=== PATIENT | male | born 1975 | race Caucasian/White ===

== ENCOUNTER 2019-10-12 14:15 | Outpatient (RCR) | payer OTHER, SELFPAY | END 2019-11-07 00:01 | LOC: SOT 14:15 | PROVIDERS: Family Provider Family Medicine; Visit Provider Specialist | DX: M77.11 Lateral epicondylitis, right elbow (principal) | CPT/HCPCS: 97035 ×5; 97110 ×5; 97140 ×4; 97165 ==

== ENCOUNTER 2022-10-14 10:05 | Inpatient (IN) | payer OTHER, SELFPAY ==
[2022-10-14 10:17] VITALS: BP 135/80; PULSE 89; TEMP 36.4; O2SAT 99; BMI 26.4
--- NOTE | 2022-10-14 11:22 | ED.C_ITS ---
HPI - Psych General: Chief Complaint: Psychiatric Symptoms Stated Complaint: hallucinations Time Seen by Provider: 10/14/22 10:35 Source: patient and family ( and friend) Mode of arrival: ambulatory Limitations: other (pt with active delusions) History of Present Illness: See nursing assessment. states patient has had auditory and visual hallucinations for approximately 3 days. Patient has been somewhat anxious. Patient also with grandiose thoughts, hyperreligious, much of the time delusional. Patient reportedly spent approximately 3 weeks in behavioral health unit at [facility] in July and August for similar problems. Patient denies being suicidal or homicidal. Associated symptoms: Reports auditory hallucinations, visual hallucinations and delusions Review of Systems 2 Const: Denies: fever(s) or chills Eyes: Denies: change in vision ENMT: Denies: throat pain Card: Denies: chest pain or palpitations Resp: Denies: dyspnea or wheezing GI: Denies: abdominal pain, nausea or vomiting : Denies: flank pain Musc: Denies: neck pain or back pain Skin/Breast: Denies: rash or pruritus Neuro: Denies: headache(s) or numbness in extremities Psych: Reports: anxiety, mood swings, visual hallucinations, auditory hallucinations and other (Delusional) Clarke/Lymph: Denies: enlarged lymph nodes [facility] ED PFSH: Medical History Right hip pain Right shoulder pain Social History Smoking and tobacco status: current every day smoker Alcohol intake: current Supplemental [facility] Information: Patient with history of acute psychosis in the past. Physical Exam Const: COMMON NORMALS: no acute distress, patient oriented x3, alert and well nourished GENERAL APPEARANCE: cooperative and well kempt HENMT: COMMON NORMALS: normocephalic and atraumatic HEAD & SCALP: normocephalic and atraumatic Eye: COMMON NORMALS: EOMs intact bilaterally Neck/C-Spine: COMMON NORMALS: full ROM, no lymphadenopathy, supple and no JVD Lymph: LYMPHATIC: no lymphadenopathy noted Chest: COMMONS NORMALS: normal inspection of the chest and normal palpation of entire chest wall Resp: COMMON NORMALS: normal respiratory effort, No retractions, No use of accessory muscles and clear to auscultation bilaterally AUSCULTATION: clear to auscultation bilaterally Cardio: COMMON NORMALS: no JVD, regular rate, regular rhythm and Peripheral pulses 2+ throughout RATE: regular rate RHYTHM: regular rhythm PERIPHERAL PULSES: Peripheral pulses 2+ throughout GI: COMMON NORMALS: Normal to inspection, nondistended, normoactive bowel sounds present, Soft to palpation and non-tender PALPATION: Yes Soft to palpation : COMMON NORMALS: Yes no CVA tenderness BLADDER/KIDNEY EXAM: Yes no CVA tenderness Back/Pelvis: COMMON NORMALS: no CVA tenderness Extremity: COMMON NORMALS: normal to inspection and full ROM Neuro: COMMON NORMALS: patient oriented x3, CN's II-XII intact bilaterally, moves all extremities, no focal motor deficits and no sensory deficits noted SENSORIUM/ORIENTATION: Yes alert Psych: COMMON NORMALS: speech normal APPEARANCE: Yes well kempt ATTITUDE: Yes calm ACTIVITY/MOTOR BEHAVIOR: Yes appropriate eye contact SPEECH: Yes normal speech MOOD & AFFECT: No anxious THOUGHT PROCESS: disorganized, Flight of ideas present and Tangential thought process present THOUGHT CONTENT: Yes delusions Delusional thought content details: grandiose ATTENTION/CONCENTRATION: Yes attention grossly intact MEMORY/COGNITION: Yes memory grossly intact INSIGHT: Fair insight present (Psych) JUDGEMENT: Fair judgement present (Psych) OTHER: Patient with active delusions. No auditory or visual hallucinations now. Patient is acutely psychotic. Skin: COMMON NORMALS: no rashes or lesions noted GENERAL SKIN EXAM: no ra shes or lesions noted Course Vital Signs: Vital signs: Vital Signs Temperature 97.6 F 10/14/22 10:17 Pulse Rate 89 10/14/22 10:17 Blood Pressure 135/80 10/14/22 10:17 Pulse Oximetry 99 10/14/22 10:17 Oxygen Delivery Me thod 10/14/22 10:17 MDM - Psych Medical Decision Making Patient is acutely psychotic. He is having active delusions. states he is gradually worsened over the last few days. Patient with recent auditory and visual hallucinations. Will place patient on 96-hour involuntary hold due to his active psychosis. Discussed with Dr. Brandon psychiatrist. He agreed to admit the patient as an inpatient to the behavioral health unit. Lab Data 10/14/22 11:34 10/14/22 11:34 Laboratory Results WBC 8.3 10^3/uL (4.0-10.0) 10/14/22 11:34 RBC 4.45 10^6/uL (4.1-5.3) 10/14/22 11:34 Hgb 14.1 g/dL (11.7-16.6) 10/14/22 11:34 Hct 40.7 % (42.0-52.0) L 10/14/22 11:34 MCV 91.5 fl (80-94) 10/14/22 11:34 MCH 31.7 pg (28.0-34.0) 10/14/22 11:34 MCHC 34.6 g/dL (30.0-36.0) 10/14/22 11:34 RDW 13.2 % (12.1-15.1) 10/14/22 11:34 Plt Count 242 10^3/cmm (130-400) 10/14/22 11:34 MPV 9.4 fL (7.4-10.4) 10/14/22 11:34 Neut % (Auto) 60.6 % 10/14/22 11:34 Lymph % (Auto) 26.1 % 10/14/22 11:34 Graham % (Auto) 11.0 % 10/14/22 11:34 Eos % (Auto) 1.9 % 10/14/22 11:34 Baso % (Auto) 0.2 % 10/14/22 11:34 Neut # (Auto) 5.04 10^3/uL (1.8-7.7) 10/14/22 11:34 Lymph # (Auto) 2.2 10^3/uL (0.8-4.8) 10/14/22 11:34 Graham # (Auto) 0.9 10^3/uL (0.2-0.9) 10/14/22 11:34 Eos # (Auto) 0.2 10^3/uL (0.0-0.8) 10/14/22 11:34 Baso # (Auto) 0.0 10^3/uL (0.0-0.1) 10/14/22 11:34 Nucleated RBC % (auto) 0 % 10/14/22 11:34 Nucleated RBCs # 0.0 /100WBC 10/14/22 11:34 Sodium 131 mmol/L (136-145) L 10/14/22 11:34 Potassium 3.9 mmol/L (3.5-5.1) 10/14/22 11:34 Chloride 97 mmol/L (98-107) L 10/14/22 11:34 Carbon Dioxide 24 mmol/L (22-29) 10/14/22 11:34 Anion Gap 13.9 (5-19) 10/14/22 11:34 BUN 5 mg/dL (6-20) L 10/14/22 11:34 Creatinine 0.9 mg/dL (0.7-1.2) 10/14/22 11:34 GFR Calculation 91.3 mL/min (90-130) 10/14/22 11:34 Glucose 100 mg/dL (65-115) 10/14/22 11:34 Calculated Osmolality 269 mOsm/kg (285-295) L 10/14/22 11:34 Calcium 9.2 mg/dL (8.5-10.5) 10/14/22 11:34 Total Bilirubin 0.3 mg/dL (0.15-1.2) 10/14/22 11:34 AST 17 U/L (0-40) 10/14/22 11:34 ALT 15 U/L (0-41) 10/14/22 11:34 Alkaline Phosphatase 55 U/L (40-130) 10/14/22 11:34 Total Protein 6.7 g/dL (6.6-8.7) 10/14/22 11:34 Albumin 4.1 g/dL (3.5-5.2) 10/14/22 11:34 Globulin 2.6 g/dL (1.3-4.6) 10/14/22 11:34 TSH 0.99 uIU/mL (0.27-4.20) 10/14/22 11:34 Urine Color Yellow (Yellow) 10/14/22 10:58 Urine Appearance Clear (CLEAR) 10/14/22 10:58 Urine pH 7 (5-7) 10/14/22 10:58 Ur Specific Atkins 1.010 (1.005-1.030) 10/14/22 10:58 Urine Protein Neg (Negative) 10/14/22 10:58 Urine Glucose (UA) Norm (Normal) 10/14/22 10:58 Urine Ketones 1+ (Negative) H 10/14/22 10:58 Urine Blood Neg (Negative) 10/14/22 10:58 Urine Nitrate Negative (Negative) 10/14/22 10:58 Urine Bilirubin Neg (Negative) 10/14/22 10:58 Urine Urobilinogen 1 mg/dL (Negative) H 10/14/22 10:58 Ur Leukocyte Esterase Negative (Negative) 10/14/22 10:58 Urine RBC None /hpf (0-2) 10/14/22 10:58 Urine WBC None /hpf (0-5) 10/14/22 10:58 Ur Squamous Epith Cells None /hpf (0-5) 10/14/22 10:58 Amorphous Sediment Not Reportable 10/14/22 10:58 Urine Bacteria None /hpf (NONE) 10/14/22 10:58 Salicylates 0.4 mg/dL (3-10) L 10/14/22 11:34 Urine Opiates Screen Negative ng/mL (Negative) 10/14/22 10:58 Acetaminophen < 5.0 ug/mL (10-30) L 10/14/22 11:34 Ur Barbiturates Screen Negative ng/mL (Negative) 10/14/22 10:58 Ur Phencyclidine Scrn Negative ng/mL (Negative) 10/14/22 10:58 Ur Amphetamines Screen Negative ng/mL (Negative) 10/14/22 10:58 U Benzodiazepines Scrn Negative ng/mL (Negative) 10/14/22 10:58 Urine Cocaine Screen Negative ng/mL (Negative) 10/14/22 10:58 U Marijuana (THC) Screen Positive ng/mL (Negative) H 10/14/22 10:58 SARS-CoV-2 Ag (Rapid) negative (Negative) 10/14/22 12:00 Discharge Plan Discharge Patient Disposition: Admitted As Inpatient Clinical Impression: Acute psychosis Condition: Stable Coding Level of Care Code ED Data Entry Specialist for Kimber Fwmikayla History Comprehensive Exam Comprehensive Medical Decision Making Moderate Complexity
[2022-10-14 11:26] LABS: Amphetamines Screen Urine Negative (Negative); Barbiturates Screen Urine Negative (Negative); Benzodiazepines Screen Urine Negative (Negative); Cocaine Screen Urine Negative (Negative); Opiate Screen Urine Negative (Negative); PCP Screen Urine Negative (Negative); THC Screen Urine Positive (Negative)
[2022-10-14 11:27] LABS: Bilirubin Urine Neg (Negative); Blood Urine Neg (Negative); Glucose Urine UA Norm (Normal); Ketones Urine 1+ (Negative); Leukocyte Esterase Urine Negative (Negative); Nitrate Urine Negative (Negative); Protein Urine Neg (Negative); Urine Appearance Clear (CLEAR); Urine Color Yellow (Yellow); Urobilinogen Urine 1 mg/dL (Negative); pH Urine 7 (5-7)
[2022-10-14 11:28] LABS: Add Urine Culture? No
[2022-10-14] MEDS: haloperidol 5 mg Tablet PO (11:30)
[2022-10-14 11:44] LABS: Basophils % 0.2 %; Eosinophils # 0.2 10^3/uL (0.0-0.8); Eosinophils % 1.9 %; Hematocrit 40.7 % (42.0-52.0); Hemoglobin 14.1 g/dL (11.7-16.6); Lymphocytes # 2.2 10^3/uL (0.8-4.8); Lymphocytes % 26.1 %; Mean Corpuscular HGB Conc 34.6 g/dL (30.0-36.0); Mean Corpuscular Hemoglobin 31.7 pg (28.0-34.0); Mean Corpuscular Volume 91.5 fl (80-94); Mean Platelet Volume 9.4 fL (7.4-10.4); Monocytes # 0.9 10^3/uL (0.2-0.9); Neutrophils # 5.04 10^3/uL (1.8-7.7); Neutrophils % 60.6 %; Nucleated Red Blood Cells % 0 %; Platelet Count 242 10^3/cmm (130-400); Red Blood Count 4.45 10^6/uL (4.1-5.3); Red Cell Distribution Width 13.2 % (12.1-15.1); White Blood Count 8.3 10^3/uL (4.0-10.0)
[2022-10-14 12:11] LABS: Alanine Aminotransferase 15 U/L (0-41); Albumin Level 4.1 g/dL (3.5-5.2); Alkaline Phosphatase 55 U/L (40-130); Anion Gap 13.9 (5-19); Aspartate Amino Transferase 17 U/L (0-40); Blood Urea Nitrogen 5 mg/dL (6-20); Calcium 9.2 mg/dL (8.5-10.5); Carbon Dioxide 24 mmol/L (22-29); Chloride 97 mmol/L (98-107); Creatinine Clr Calc Pharmacy 116.7755; Globulin 2.6 g/dL (1.3-4.6); Glomerular Filtration Rate 91.3 mL/min (90-130); Glucose 100 mg/dL (65-115); Osmolality Calculated 269 mOsm/kg (285-295); Potassium 3.9 mmol/L (3.5-5.1); Salicylate 0.4 mg/dL (3-10); Sodium 131 mmol/L (136-145); Thyroid Stimulating Hormone 0.99 uIU/mL (0.27-4.20); Total Bilirubin 0.3 mg/dL (0.15-1.2); Total Protein 6.7 g/dL (6.6-8.7)
[2022-10-14 12:14] LABS: Acetaminophen < 5.0 ug/mL (10-30)
[2022-10-14 12:25] LABS: SARS Covid-2 Antigen negative (Negative)
--- NOTE | 2022-10-14 13:11 | ECG_ITS ---
[facility] Test Date: 2022-10-14 Pat Name: Petey Lee Department: Room: Gender: Male Medical Records Custodian: : 1975 Requested By: Marcelo Cunningham Order Number: [id number] Ayad MD: Harshil Martinez M.D. Measurements Intervals Douglas Rate: 98 P: 62 IA: 163 QRS: 44 QRSD: 97 T: 45 QT: 320 QTc: 409 Interpretive Statements SINUS RHYTHM POSSIBLE LEFT ATRIAL ENLARGEMENT [-0.1mV P-WAVE IN V1/V2] INCOMPLETE RIGHT BUNDLE BRANCH BLOCK [90+ ms QRS DURATION, TERMINAL R IN V1/V2, 40+ ms S IN I/aVL/V4/V5/V6] POSSIBLE INFERIOR MYOCARDIAL INFARCTION , OF INDETERMINATE AGE [30 ms Q WAVE IN II/aVF] No previous ECG available for comparison Electronically Signed On 10-14-2022 16:17:06 DIRECTOR OF VOCATIONAL GUIDANCE by Harshil Martinez M.D. [id number]
--- NOTE | 2022-10-14 13:14 | W.ED.PSYCHS ---
HPI - Psych General: Chief Complaint: Psychiatric Symptoms Stated Complaint: hallucinations Time Seen by Provider: 10/14/22 10:35 Source: patient and family ( and friend) Mode of arrival: ambulatory History of Present Illness: See previous ER sheet. This is only an EKG interpretation. PFS ED PFSH: Medical History Right hip pain Right shoulder pain Social History Smoking and tobacco status: current every day smoker Alcohol intake: current Course Vital Signs: Vital signs: Vital Signs Temperature 97.6 F 10/14/22 10:17 Pulse Rate 89 10/14/22 10:17 Blood Pressure 135/80 10/14/22 10:17 Pulse Oximetry 99 10/14/22 10:17 Oxygen Delivery Me thod 10/14/22 10:17 MDM - Psych Medical Decision Making ekg interpretation only Lab Data 10/14/22 11:34 10/14/22 11:34 Laboratory Results WBC 8.3 10^3/uL (4.0-10.0) 10/14/22 11:34 RBC 4.45 10^6/uL (4.1-5.3) 10/14/22 11:34 Hgb 14.1 g/dL (11.7-16.6) 10/14/22 11:34 Hct 40.7 % (42.0-52.0) L 10/14/22 11:34 MCV 91.5 fl (80-94) 10/14/22 11:34 MCH 31.7 pg (28.0-34.0) 10/14/22 11:34 MCHC 34.6 g/dL (30.0-36.0) 10/14/22 11:34 RDW 13.2 % (12.1-15.1) 10/14/22 11:34 Plt Count 242 10^3/cmm (130-400) 10/14/22 11:34 MPV 9.4 fL (7.4-10.4) 10/14/22 11:34 Neut % (Auto) 60.6 % 10/14/22 11:34 Lymph % (Auto) 26.1 % 10/14/22 11:34 Larimer % (Auto) 11.0 % 10/14/22 11:34 Eos % (Auto) 1.9 % 10/14/22 11:34 Baso % (Auto) 0.2 % 10/14/22 11:34 Neut # (Auto) 5.04 10^3/uL (1.8-7.7) 10/14/22 11:34 Lymph # (Auto) 2.2 10^3/uL (0.8-4.8) 10/14/22 11:34 Larimer # (Auto) 0.9 10^3/uL (0.2-0.9) 10/14/22 11:34 Eos # (Auto) 0.2 10^3/uL (0.0-0.8) 10/14/22 11:34 Baso # (Auto) 0.0 10^3/uL (0.0-0.1) 10/14/22 11:34 Nucleated RBC % (auto) 0 % 10/14/22 11:34 Nucleated RBCs # 0.0 /100WBC 10/14/22 11:34 Sodium 131 mmol/L (136-145) L 10/14/22 11:34 Potassium 3.9 mmol/L (3.5-5.1) 10/14/22 11:34 Chloride 97 mmol/L (98-107) L 10/14/22 11:34 Carbon Dioxide 24 mmol/L (22-29) 10/14/22 11:34 Anion Gap 13.9 (5-19) 10/14/22 11:34 BUN 5 mg/dL (6-20) L 10/14/22 11:34 Creatinine 0.9 mg/dL (0.7-1.2) 10/14/22 11:34 GFR Calculation 91.3 mL/min (90-130) 10/14/22 11:34 Glucose 100 mg/dL (65-115) 10/14/22 11:34 Calculated Osmolality 269 mOsm/kg (285-295) L 10/14/22 11:34 Calcium 9.2 mg/dL (8.5-10.5) 10/14/22 11:34 Total Bilirubin 0.3 mg/dL (0.15-1.2) 10/14/22 11:34 AST 17 U/L (0-40) 10/14/22 11:34 ALT 15 U/L (0-41) 10/14/22 11:34 Alkaline Phosphatase 55 U/L (40-130) 10/14/22 11:34 Total Protein 6.7 g/dL (6.6-8.7) 10/14/22 11:34 Albumin 4.1 g/dL (3.5-5.2) 10/14/22 11:34 Globulin 2.6 g/dL (1.3-4.6) 10/14/22 11:34 TSH 0.99 uIU/mL (0.27-4.20) 10/14/22 11:34 Urine Color Yellow (Yellow) 10/14/22 10:58 Urine Appearance Clear (CLEAR) 10/14/22 10:58 Urine pH 7 (5-7) 10/14/22 10:58 Ur Specific Warnock 1.010 (1.005-1.030) 10/14/22 10:58 Urine Protein Neg (Negative) 10/14/22 10:58 Urine Glucose (UA) Norm (Normal) 10/14/22 10:58 Urine Ketones 1+ (Negative) H 10/14/22 10:58 Urine Blood Neg (Negative) 10/14/22 10:58 Urine Nitrate Negative (Negative) 10/14/22 10:58 Urine Bilirubin Neg (Negative) 10/14/22 10:58 Urine Urobilinogen 1 mg/dL (Negative) H 10/14/22 10:58 Ur Leukocyte Esterase Negative (Negative) 10/14/22 10:58 Urine RBC None /hpf (0-2) 10/14/22 10:58 Urine WBC None /hpf (0-5) 10/14/22 10:58 Ur Squamous Epith Cells None /hpf (0-5) 10/14/22 10:58 Amorphous Sediment Not Reportable 10/14/22 10:58 Urine Bacteria None /hpf (NONE) 10/14/22 10:58 Salicylates 0.4 mg/dL (3-10) L 10/14/22 11:34 Urine Opiates Screen Negative ng/mL (Negative) 10/14/22 10:58 Acetaminophen < 5.0 ug/mL (10-30) L 10/14/22 11:34 Ur Barbiturates Screen Negative ng/mL (Negative) 10/14/22 10:58 Ur Phencyclidine Scrn Negative ng/mL (Negative) 10/14/22 10:58 Ur Amphetamines Screen Negative ng/mL (Negative) 10/14/22 10:58 U Benzodiazepines Scrn Negative ng/mL (Negative) 10/14/22 10:58 Urine Cocaine Screen Negative ng/mL (Negative) 10/14/22 10:58 U Marijuana (THC) Screen Positive ng/mL (Negative) H 10/14/22 10:58 SARS-CoV-2 Ag (Rapid) negative (Negative) 10/14/22 12:00 EKG Data EKG 1: I personally reviewed and interpreted this EKG as follows: EKG interpretation date: 10/14/22 EKG interpretation time: 13:16 Interpretation: EKG shows normal sinus rhythm with heart rate of 98. Normal axis. Normal MA interval, normal P wave, normal T waves. Normal ST segment. Normal axis. Normal QRS. Normal EKG. Discharge Plan Discharge Patient Disposition: Admitted As Inpatient Clinical Impression: Acute psychosis Condition: Stable Coding Level of Care Code ED Airport Screener for Kimber Fields
[2022-10-14] MEDS: nicotine 21 mg Patch 1 PATCH TRANSDERMA (13:31)
[2022-10-14 15:03] VITALS: BP 111/74; PULSE 97; RESP 18; TEMP 36.6; O2SAT 96
--- NOTE | 2022-10-14 16:30 | PC.NURSE ---
Patient calm and cooperative throughout assessment. He states he is here because his was saying he was aggressive and was getting scared so he drove himself here. When asked what he was saying or doing that he thought was making her scared he said, I don't know. Just the truth. She doesn't understand. Patient said he has PTSD and is seeing what is going to be. He says at one time he saw 3 suns with a face and that everything is just a bridge to another bridge. Patient says that medications have been prescribed to him for sleep but that he doesn't want to get fed the poisons. He denied HI, but endorses AH/VH. He sees beams of lights around me like Ricky in The Matrix and then one time I saw 2 arabs with AK 47s and they said get out of here! Patient also stated he once saw a monkey woman and ended up to her. He says he doesn't have any suicidal thoughts now, but that he has thought about it before. Patient says he is the first John and I'm observant. I could be a doctor. He continued to make moravian statements about John coming, him being John, and victory is here. Denies any needs at this time.
[2022-10-14 20:30] VITALS: BP 113/78; PULSE 108; RESP 17; TEMP 36.6; O2SAT 96
[2022-10-14] MEDS: trazodone 50 mg Tablet PO (22:57)
[2022-10-15] MEDS: hyDROXYzine 25 mg Capsule 50 MG PO (00:34)
[2022-10-15] MEDS: trazodone 50 mg Tablet PO (00:34)
[2022-10-15 06:00] VITALS: BP 120/79; PULSE 95; RESP 18; TEMP 37.4; O2SAT 95
[2022-10-15] MEDS: divalproex DR 500 mg Tablet PO (09:27)
[2022-10-15] MEDS: OXcarbazepine 300 mg Tablet 600 MG PO ×2 (09:27→18:01)
[2022-10-15] MEDS: paliperidone ER 3 mg Tablet 9 MG PO (09:28)
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
[2022-10-15 14:00] VITALS: BP 127/80; PULSE 86; RESP 18; TEMP 36.6; O2SAT 97
[2022-10-15 20:47] VITALS: BP 119/83; PULSE 83; RESP 17; TEMP 36.6; O2SAT 98
[2022-10-16 06:00] VITALS: BP 135/70; PULSE 116; RESP 18; TEMP 36.4; O2SAT 97
[2022-10-16] MEDS: OXcarbazepine 300 mg Tablet 600 MG PO ×2 (09:10→18:09)
[2022-10-16] MEDS: paliperidone ER 3 mg Tablet 9 MG PO (09:10)
[2022-10-16 09:30] LABS: Valproic Acid Level 11.2 ug/mL (50-100)
[2022-10-16] MEDS: ibuprofen 600 mg Tablet PO ×2 (12:46→20:24)
--- NOTE | 2022-10-16 18:00 | W.PM.NPUPNS ---
Subjective NPU Subjective: Patient presented today continuing to have hyperreligious delusions as well as delusions of grandeur. Even with his present he suggested that he had special messina and special connection with the universe. We discussed his low level and doubling his dose after discussing the risks, benefits and alternatives he understood and agreed to proceed as is documented in this note. He was very clear that he wanted to discharge and we discussed not being willing to discharge him until he was psychiatrically stable. Mental Status Exam MSE Comments: This is a well nourished, well developed white man with hospital scrubs on with adequate grooming and eye contact. No abnormal movements except for mild psychomotor retardation and weird gestures that he does, including cross signs over his body, arms crossed, almost like he is hugging himself while moving them. Cooperative with exam in no acute distress. Poor personal space. Speech was slightly decreased rate and volume. Mood described as good, affect is elevated and strange at times. Thought process, organized. Thought content: patient denies suicidal or homicidal ideation, no current paranoia but endorses sometimes experiencing it and hyper restorationism delusions noted, and endorses auditory and visual hallucinations. Attention and concentration are intact and memory appeared reliable but none were formally tested. He is alert and oriented times three. Insight and judgment are impaired. Impulse control is impaired. Vitals/I&O/Wt Last Vital Signs Temp 98.1 F 10/16/22 20:06 Pulse 77 10/16/22 20:06 Resp 17 10/16/22 20:06 BP 126/78 10/16/22 20:06 Pulse Ox 99 10/16/22 20:06 O2 Del Method 10/16/22 14:00 Data NPU 10/14/22 11:34 10/14/22 11:34 A&P Assessment and plan (1) Acute psychosis: (2) Severe manic bipolar 1 disorder with psychotic behavior: Plan This is a 47 year old white man with a history of trauma and genetic loading for mental health and addiction issues who presents with restorationism delusions, clear haley representing bipolar disorder versus schizoaffective disorder bipolar type reporting he came at the request of his due to her concerns and is open to medication changes at this time. 1. Continue current medications. Increase Depakote to 1000 mg p.o. twice daily. 2. Encourage individual, group and milieu therapy 3. Continue q-15 minute check for safety 4. Recommend sober living treatment at the highest level of care to which the patient is willing to commit. Involuntary Hold Information 96 Hour Hold: 96 Hour Involuntary Admission: Yes 96 Hour Hold Ending Date: 10/20/22 96 Hour Hold Ending Time: 10:17 Attestations NPU Medical Necessity Statement*: Inpatient hospitalization is medically necessary and the clinically appropriate intervention at this time. We will monitor medications and make changes as indicated. Likely length of stay is 6-9 days. Coding Level of Care Code Acute Physician Neonatology for [facility] Diagnoses Acute psychosis F23 Severe manic bipolar 1 disorder with psychotic behavior F31.2
[2022-10-16] MEDS: divalproex DR 500 mg Tablet 1000 MG PO (18:09)
[2022-10-16 20:06] VITALS: BP 126/78; PULSE 77; RESP 17; TEMP 36.7; O2SAT 99
[2022-10-17] MEDS: calcium carbonate 500 mg Chew Tablet 1000 MG PO (05:32)
[2022-10-17 06:00] VITALS: BP 121/75; PULSE 78; RESP 18; O2SAT 97
[2022-10-17] MEDS: nicotine 4 mg lozenge MUCOUS MEM (12:05)
[2022-10-17 14:00] VITALS: BP 109/73; PULSE 74; RESP 18; TEMP 36.4; O2SAT 97
--- NOTE | 2022-10-17 16:00 | W.PM.NPUPNS ---
Subjective NPU Subjective: Patient presented today doing okay initially but still struggling with clear haley with strange hand gestures and behaviors. He continues to endorse needing to be discharged as soon as possible. His returned for a visit and while visiting with her he got angry because she agreed with the treatment team about his continued need for inpatient services. He had a aggressive violent outburst where he was screaming at this policy writer sales which led to her ending the visit very quickly. Mental Status Exam MSE Comments: This is a well nourished, well developed white man with hospital scrubs on with adequate grooming and eye contact. No abnormal movements except for mild psychomotor retardation and weird gestures that he does, including cross signs over his body, arms crossed, almost like he is hugging himself while moving them. Cooperative with exam mild to extreme distress. Poor personal space. Speech was increased rate and volume. Mood described as pissed that I'm here, affect is elevated and strange at times, and congruent. Thought process, organized. Thought content: patient denies suicidal or homicidal ideation, no current paranoia but endorses sometimes experiencing it and hyper cheondoism delusions noted, and endorses auditory and visual hallucinations. Attention and concentration are intact and memory appeared reliable but none were formally tested. He is alert and oriented times three. Insight and judgment are impaired. Impulse control is impaired. Vitals/I&O/Wt Last Vital Signs Temp 98.1 F 10/16/22 20:06 Pulse 78 10/17/22 06:00 Resp 18 10/17/22 06:00 BP 121/75 10/17/22 06:00 Pulse Ox 97 10/17/22 06:00 O2 Del Method 10/16/22 14:00 Data NPU 10/14/22 11:34 10/14/22 11:34 A&P Assessment and plan (1) Acute psychosis: (2) Severe manic bipolar 1 disorder with psychotic behavior: Plan This is a 47 year old white man with a history of trauma and genetic loading for mental health and addiction issues who presents with cheondoism delusions, clear haley representing bipolar disorder versus schizoaffective disorder bipolar type reporting he came at the request of his due to her concerns and is open to medication changes at this time. 1. Continue current medications. Increase Depakote to 1000 mg p.o. twice daily. 2. Encourage individual, group and milieu therapy 3. Continue q-15 minute check for safety 4. Recommend sober living treatment at the highest level of care to which the patient is willing to commit. Involuntary Hold Information 96 Hour Hold: 96 Hour Involuntary Admission: Yes 96 Hour Hold Ending Date: 10/20/22 96 Hour Hold Ending Time: 10:17 Attestations NPU Medical Necessity Statement*: Inpatient hospitalization is medically necessary and the clinically appropriate intervention at this time. We will monitor medications and make changes as indicated. Likely length of stay is 6-9 days. Coding Level of Care Code Acute Log Snaker for [facility] Diagnoses Acute psychosis F23 Severe manic bipolar 1 disorder with psychotic behavior F31.2
--- NOTE | 2022-10-17 16:58 | PC.NURSE ---
Patient repeatedly coming to nurses' station and raising his voice to tell the nurses he will not be taking any medications and putting the poisons in my body. 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 Patient will state that he respects the nurses and knows we don't make the rules, but then raises his voice immediately after to say things like, all of you don't know yet, but you are going to know soon. I know.
--- NOTE | 2022-10-17 18:34 | PC.NURSE ---
Patient refusing medications. Patient explained the benefits of medications and the importance of medication compliance. Patient continued to refuse medications and state, I'm doing what's best for me. I'm not putting that in my body.
[2022-10-17] MEDS: ibuprofen 600 mg Tablet PO (20:35)
[2022-10-17 21:26] VITALS: BP 134/90; PULSE 96; RESP 18; TEMP 36.8; O2SAT 98
[2022-10-18 06:00] VITALS: BP 138/74; PULSE 97; RESP 20; TEMP 36.9; O2SAT 97; BMI 26.4
[2022-10-18] MEDS: ibuprofen 600 mg Tablet PO ×3 (09:22→20:31)
[2022-10-18] MEDS: OXcarbazepine 300 mg Tablet 600 MG PO ×2 (09:22→18:05)
[2022-10-18] MEDS: paliperidone ER 3 mg Tablet 9 MG PO (09:23)
[2022-10-18] MEDS: divalproex DR 500 mg Tablet 1000 MG PO ×2 (09:23→18:05)
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
[2022-10-18] MEDS: nicotine 4 mg lozenge MUCOUS MEM (13:06)
--- NOTE | 2022-10-18 13:14 | PC.NURSE ---
Patient making strange comments about how he lost his eyesight 18 years ago in the hospital from the air. He pointed to this RN and stated to another patient, My used to sit in that chair she's sitting in. He then stated, I possessed the gifts and that's why they killed me I think. We're gonna be okay. Smoke em if ya got em. We're all friends here. Patient became tearful for unknown reasons and when another patient got frustrated he began pounding his fist on the counter and then stopped abruptly and immediately apologized for his actions.
[2022-10-18 14:00] VITALS: BP 116/79; PULSE 88; RESP 18; O2SAT 97
[2022-10-18] MEDS: acetaminophen 325 mg Tablet 650 MG PO (15:35)
[2022-10-19 05:51] VITALS: BP 104/69; PULSE 90; RESP 16; TEMP 36.6; O2SAT 97
[2022-10-19] MEDS: paliperidone ER 3 mg Tablet 9 MG PO (08:13)
[2022-10-19] MEDS: ibuprofen 600 mg Tablet PO ×2 (08:13→20:10)
[2022-10-19] MEDS: OXcarbazepine 300 mg Tablet 600 MG PO ×2 (08:13→18:20)
[2022-10-19] MEDS: divalproex DR 500 mg Tablet 1000 MG PO ×2 (08:13→18:20)
[2022-10-19 14:00] VITALS: BP 116/76; PULSE 82; RESP 17; TEMP 36.7; O2SAT 98
[2022-10-19] MEDS: hyDROXYzine 25 mg Capsule 50 MG PO (16:18)
[2022-10-19 16:29] LABS: Glucose Point of Care 133 mg/dL (70-110)
--- NOTE | 2022-10-19 16:33 | PC.PHAR ---
PRN Newspaper Delivery Driver Patient had a visitor from 3-4pm. When she left it appeared to make him anxious. He stated he missed home and that he was worried about her. Patient asked for anxiety medication. Administered 50 mg hydroxyzine PO.
[2022-10-19] MEDS: cetylpyridinium Lozenge 1 EACH MUCOUS MEM (16:51)
--- NOTE | 2022-10-19 17:17 | W.PM.NPUPNS ---
Subjective NPU Subjective: Patient presented today reporting that he is ready to go home. He continues to have significant delusional thinking believing that he has special messina including reading this music writer's mind. Believing he has ties to the early settlers of [place] and believing that he was the first [place]. We discussed the total day hold process and he endorsed that he was going to file a formal complaint. Mental Status Exam MSE Comments: This is a well nourished, well developed white man with hospital scrubs on with adequate grooming and eye contact. No abnormal movements except for mild psychomotor retardation but no weird gestures noted. Cooperative with exam no acute distress. Poor personal space. Speech was increased rate and volume and slightly pressured. Mood described as good, affect is elevated and strange at times. Thought process, organized but this was our hyperreligious ramblings. Thought content: patient denies suicidal or homicidal ideation, no current paranoia but endorses sometimes experiencing it and hyper yarsanism delusions noted, and endorses auditory and visual hallucinations. Attention and concentration are intact and memory appeared reliable in some areas but unreliable in others but none were formally tested. He is alert and oriented times three but not purpose. Insight and judgment are impaired. Impulse control is impaired. Vitals/I&O/Wt Last Vital Signs Temp 98.5 F 10/19/22 19:41 Pulse 114 H 10/19/22 19:41 Resp 18 10/19/22 19:41 BP 134/80 10/19/22 19:41 Pulse Ox 98 10/19/22 19:41 O2 Del Method 10/18/22 06:00 Data NPU 10/14/22 11:34 10/14/22 11:34 A&P Assessment and plan (1) Acute psychosis: (2) Severe manic bipolar 1 disorder with psychotic behavior: Plan This is a 47 year old white man with a history of trauma and genetic loading for mental health and addiction issues who presents with yarsanism delusions, clear haley representing bipolar disorder versus schizoaffective disorder bipolar type reporting he came at the request of his due to her concerns and is open to medication changes at this time. 1. Continue current medications. Increased Depakote to 1000 mg p.o. twice daily. increase Invega to 12 mg and recommend Invega Sustenna. 2. Encourage individual, group and milieu therapy 3. Continue q-15 minute check for safety 4. Recommend sober living treatment at the highest level of care to which the patient is willing to commit. Involuntary Hold Information 96 Hour Hold: 96 Hour Involuntary Admission: Yes 96 Hour Hold Ending Date: 10/20/22 96 Hour Hold Ending Time: 10:17 Attestations NPU Medical Necessity Statement*: Inpatient hospitalization is medically necessary and the clinically appropriate intervention at this time. We will monitor medications and make changes as indicated. Likely length of stay is 6-9 days. 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
[2022-10-19 19:41] VITALS: BP 134/80; PULSE 114; RESP 18; TEMP 36.9; O2SAT 98
[2022-10-20 06:00] VITALS: BP 119/66; PULSE 106; RESP 18; TEMP 36.3; O2SAT 97
[2022-10-20] MEDS: OXcarbazepine 300 mg Tablet 600 MG PO ×2 (08:45→18:12)
[2022-10-20] MEDS: divalproex DR 500 mg Tablet 1000 MG PO ×2 (08:47→18:11)
[2022-10-20] MEDS: ibuprofen 600 mg Tablet PO ×3 (08:47→21:35)
[2022-10-20] MEDS: paliperidone ER 6 mg Tablet 12 MG PO (08:52)
[2022-10-20] MEDS: nicotine 21 mg Patch 1 PATCH TRANSDERMA (09:25)
[2022-10-20 14:00] VITALS: BP 134/88; PULSE 97; RESP 18; TEMP 36.8; O2SAT 98
--- NOTE | 2022-10-20 17:00 | P.NPUPN_ITS ---
Subjective NPU Subjective: Patient presented today reporting wanting to leave with his . He did endorse understanding that he needed to stay. He was able to identify that he has some odd thinking but still firmly believes in the authenticity of his thoughts and delusions. We discussed how he did better with the Lamictal and that maybe we could find a dose with his current medication that could assist him but without the same side effects that led him discontinuing it. Mental Status Exam MSE Comments: This is a well nourished, well developed white man with hospital scrubs on with adequate grooming and eye contact. No abnormal movements except for mild psychomotor retardation but no weird gestures noted. Cooperative with exam no acute distress. Poor personal space. Speech was increased rate and volume and slightly pressured. Mood described as good, affect is elevated and strange at times. Thought process, organized but this was our hyperreligious ramblings. Thought content: patient denies suicidal or homicidal ideation, no current paranoia but endorses sometimes experiencing it and hyper zoroastrian delusions noted, and endorses auditory and visual hallucinations. Attention and concentration are intact and memory appeared reliable in some areas but unreliable in others but none were formally tested. He is alert and oriented times three but not purpose. Insight and judgment are impaired. Impulse control is impaired. Vitals/I&O/Wt Last Vital Signs Temp 97.4 F L 10/20/22 06:00 Pulse 106 H 10/20/22 06:00 Resp 18 10/20/22 06:00 BP 119/66 10/20/22 06:00 Pulse Ox 97 10/20/22 06:00 O2 Del Method 10/18/22 06:00 Data NPU 10/14/22 11:34 10/14/22 11:34 A&P Assessment and plan (1) Acute psychosis: (2) Severe manic bipolar 1 disorder with psychotic behavior: Plan This is a 47 year old white man with a history of trauma and genetic loading for mental health and addiction issues who presents with zoroastrian delusions, clear haley representing bipolar disorder versus schizoaffective disorder bipolar type reporting he came at the request of his due to her concerns and is open to medication changes at this time. 1. Continue current medications. Increased Depakote to 1000 mg p.o. twice daily. increase Invega to 12 mg and recommend Invega Sustenna. Start Lamictal 25 mg p.o. daily. 2. Encourage individual, group and milieu therapy 3. Continue q-15 minute check for safety 4. Recommend sober living treatment at the highest level of care to which the patient is willing to commit. Involuntary Hold Information 96 Hour Hold: 96 Hour Involuntary Admission: Yes 96 Hour Hold Ending Date: 10/20/22 96 Hour Hold Ending Time: 10:17 Attestations NPU Medical Necessity Statement*: Inpatient hospitalization is medically necessary and the clinically appropriate intervention at this time. We will monitor medications and make changes as indicated. Likely length of stay is 6-9 days. Coding Level of Care Code Acute Clinical Data Specialist for [facility] Diagnoses Acute psychosis F23 Severe manic bipolar 1 disorder with psychotic behavior F31.2
[2022-10-20] MEDS: fluticasone nasal spray 16gm Btl 1 SPRAY NASAL (18:33)
[2022-10-20 20:41] VITALS: BP 135/85; PULSE 94; RESP 17; TEMP 36.7; O2SAT 98
--- NOTE | 2022-10-21 04:00 | PC.NURSE ---
Patient came to nurse's station to report that he just vomited in his sink in his room. VS taken at that time. See flowsheet. VS-WNL. Patient stated he just woke up and felt sick to his stomach. Asked if he could take a bath. Patient given white soda to help with upset stomach. Assisted patient with getting bath ready at that time. This writer editor went to room to clean up emesis. Large amount noted in sink. Patient in bath at this time.
--- NOTE | 2022-10-21 05:00 | PC.NURSE ---
Patient denies N/V at this time. Stated he feels much better. Resting in bed currently.
[2022-10-21 06:00] VITALS: BP 100/69; PULSE 98; RESP 16; TEMP 36.8; O2SAT 95
[2022-10-21] MEDS: divalproex DR 500 mg Tablet 1000 MG PO ×2 (08:39→18:12)
[2022-10-21] MEDS: OXcarbazepine 300 mg Tablet 600 MG PO ×2 (08:40→18:13)
[2022-10-21] MEDS: paliperidone ER 6 mg Tablet 12 MG PO (08:40)
[2022-10-21] MEDS: ibuprofen 600 mg Tablet PO ×3 (08:40→20:32)
[2022-10-21] MEDS: lamoTRIgine 25 mg Tablet PO (08:40)
[2022-10-21] MEDS: fluticasone nasal spray 16gm Btl 1 SPRAY NASAL (08:41)
[2022-10-21] MEDS: nicotine 21 mg Patch 1 PATCH TRANSDERMA (11:14)
[2022-10-21 14:00] VITALS: BP 129/88; PULSE 83; RESP 17; TEMP 36.6; O2SAT 98
--- NOTE | 2022-10-21 18:45 | P.NPUPN_ITS ---
Subjective NPU Subjective: Patient presented today reporting that he was doing better. He continues to have delusions of reference related to people on the unit and relationships that he had with staff and other individuals in the world. He denies any issues with the initiation of the Lamictal 25 mg and we agreed we w ould titrate safely but appropriate with understanding of the risk for [place]- Hung syndrome. Continue to communicate with his who continues to support the plan and we discussed the 21 day hold hearing tomorrow at 3 PM. Mental Status Exam MSE Comments: This is a well nourished, well developed white man with hospital scrubs on with adequate grooming and eye contact. No abnormal movements except for mild psychomotor retardation but no weird gestures noted. Cooperative with exam no acute distress. Poor personal space. Speech was increased rate and volume and slightly pressured. Mood described as good, affect is elevated and strange at times. Thought process, organized but this was our hyperreligious ramblings. Thought content: patient denies suicidal or homicidal ideation, no current paranoia but endorses sometimes experiencing it and hyper hoahaoism delusions noted, and endorses auditory and visual hallucinations. Attention and concentration are intact and memory appeared reliable in some areas but unreliable in others but none were formally tested. He is alert and oriented times three but not purpose. Insight and judgment are impaired. Impulse control is impaired. Vitals/I&O/Wt Last Vital Signs Temp 97.9 F 10/21/22 20:01 Pulse 84 10/21/22 20:01 Resp 18 10/21/22 20:01 BP 117/80 10/21/22 20:01 Pulse Ox 98 10/21/22 20:01 O2 Del Method 10/21/22 06:00 Data NPU 10/14/22 11:34 10/14/22 11:34 A&P Assessment and plan (1) Acute psychosis: (2) Severe manic bipolar 1 disorder with psychotic behavior: Plan This is a 47 year old white man with a history of trauma and genetic loading for mental health and addiction issues who presents with hoahaoism delusions, clear haley representing bipolar disorder versus schizoaffective disorder bipolar type reporting he came at the request of his due to her concerns and is open to medication changes at this time. 1. Continue current medications. Increased Depakote to 1000 mg p.o. twice daily. increase Invega to 12 mg and recommend Invega Sustenna. Started Lamictal 25 mg p.o. daily. 2. Encourage individual, group and milieu therapy 3. Continue q-15 minute check for safety 4. Recommend sober living treatment at the highest level of care to which the patient is willing to commit. 5. 21-day hold hearing tomorrow at 3 PM. Involuntary Hold Information 96 Hour Hold: 96 Hour Involuntary Admission: Yes 96 Hour Hold Ending Date: 10/20/22 96 Hour Hold Ending Time: 10:17 Attestations NPU Medical Necessity Statement*: Inpatient hospitalization is medically necessary and the clinically appropriate intervention at this time. We will monitor medications and make changes as indicated. Likely length of stay is 6-9 days. Coding Level of Care Code Acute Hydrogeologist for [facility] Diagnoses Acute psychosis F23 Severe manic bipolar 1 disorder with psychotic behavior F31.2
[2022-10-21 20:01] VITALS: BP 117/80; PULSE 84; RESP 18; TEMP 36.6; O2SAT 98
[2022-10-22 06:00] VITALS: RESP 17
[2022-10-22] MEDS: OXcarbazepine 300 mg Tablet 600 MG PO ×2 (08:05→17:39)
[2022-10-22] MEDS: paliperidone ER 6 mg Tablet 12 MG PO (08:05)
[2022-10-22] MEDS: nicotine 21 mg Patch 1 PATCH TRANSDERMA (08:05)
[2022-10-22] MEDS: famotidine 20 mg Tablet PO (08:06)
[2022-10-22] MEDS: ibuprofen 600 mg Tablet PO ×3 (08:06→21:01)
[2022-10-22] MEDS: lamoTRIgine 25 mg Tablet PO (08:06)
[2022-10-22] MEDS: divalproex DR 500 mg Tablet 1000 MG PO ×2 (08:07→17:39)
--- NOTE | 2022-10-22 13:50 | W.PM.NPUPNS ---
Subjective NPU Subjective: Patient presented today continuing to be 1 of for personal space and intrusiveness into other people on the unit. We discussed the 21-day hold hearing later today. Initially he was saying he was going to be hearing but then after talking to his [place] programmer he said his [place] programmer talked him into going and that he had a chance winning the case. I explained to him the level of impairment that still exist and the need to monitor the Lamictal for more rapid escalation of dose and likelihood that he would be staying. He did choose to go to the hearing. Mental Status Exam MSE Comments: This is a well nourished, well developed white man with hospital scrubs on with adequate grooming and eye contact. No abnormal movements except for mild psychomotor agitation but no weird gestures noted. Cooperative with exam no acute distress. Poor personal space. Speech was increased rate and volume and slightly pressured. Mood described as good, affect is elevated and strange at times. Thought process, organized but still having hyperreligious ramblings. Thought content: patient denies suicidal or homicidal ideation, no current paranoia but endorses sometimes experiencing it and hyper zoroastrianism delusions noted, and endorses auditory and visual hallucinations. Attention and concentration are intact and memory appeared reliable in some areas but unreliable in others but none were formally tested. He is alert and oriented times three but not purpose. Insight and judgment are impaired. Impulse control is impaired. Vitals/I&O/Wt Last Vital Signs Temp 97.9 F 10/21/22 20:01 Pulse 84 10/21/22 20:01 Resp 17 10/22/22 06:00 BP 117/80 10/21/22 20:01 Pulse Ox 98 10/21/22 20:01 O2 Del Method 10/21/22 06:00 Data NPU 10/14/22 11:34 10/14/22 11:34 A&P Assessment and plan (1) Acute psychosis: (2) Severe manic bipolar 1 disorder with psychotic behavior: Plan This is a 47 year old white man with a history of trauma and genetic loading for mental health and addiction issues who presents with zoroastrianism delusions, clear haley representing bipolar disorder versus schizoaffective disorder bipolar type reporting he came at the request of his due to her concerns and is open to medication changes at this time. 1. Continue current medications. Increased Depakote to 1000 mg p.o. twice daily. increase Invega to 12 mg and recommend Invega Sustenna. Started Lamictal 25 mg p.o. daily. 2. Encourage individual, group and milieu therapy 3. Continue q-15 minute check for safety 4. Recommend sober living treatment at the highest level of care to which the patient is willing to commit. 5. 21-day hold hearing today at 3 PM. Involuntary Hold Information 96 Hour Hold: 96 Hour Involuntary Admission: Yes 96 Hour Hold Ending Date: 10/20/22 96 Hour Hold Ending Time: 10:17 Attestations NPU Medical Necessity Statement*: Inpatient hospitalization is medically necessary and the clinically appropriate intervention at this time. We will monitor medications and make changes as indicated. Likely length of stay is 6-9 days. Coding Level of Care Code Acute Applications Specialist for Kimber Fields Diagnoses Acute psychosis F23 Severe manic bipolar 1 disorder with psychotic behavior F31.2
[2022-10-22 14:00] VITALS: BP 130/80; PULSE 96; RESP 20; TEMP 36.7; O2SAT 98
[2022-10-22] MEDS: hyDROXYzine 25 mg Capsule 50 MG PO (14:09)
--- NOTE | 2022-10-22 14:58 | PC.NURSE ---
PT IS OFF UNIT WITH DEP TO [address] R/T 21 DAY HOLD, LEFT AT [id number]
[2022-10-22] MEDS: nicotine 4 mg lozenge MUCOUS MEM (16:45)
[2022-10-22] MEDS: fluticasone nasal spray 16gm Btl 1 SPRAY NASAL (16:45)
[2022-10-22 19:38] VITALS: BP 135/81; PULSE 83; RESP 18; TEMP 36.4; O2SAT 99
[2022-10-22] MEDS: blistex lip oint 7 gm Tube 1 APPLIC TOPICAL (21:31)
[2022-10-23 06:00] VITALS: RESP 18
[2022-10-23] MEDS: ibuprofen 600 mg Tablet PO ×2 (08:57→15:03)
[2022-10-23] MEDS: divalproex DR 500 mg Tablet 1000 MG PO (08:59)
[2022-10-23] MEDS: nicotine 21 mg Patch 1 PATCH TRANSDERMA (08:59)
[2022-10-23] MEDS: paliperidone ER 6 mg Tablet 12 MG PO (09:00)
[2022-10-23] MEDS: lamoTRIgine 25 mg Tablet PO (09:00)
[2022-10-23] MEDS: OXcarbazepine 300 mg Tablet 600 MG PO ×2 (09:00→18:03)
--- NOTE | 2022-10-23 13:15 | P.NPUPN_ITS ---
Subjective NPU Subjective: Patient presented today reporting that he is tolerating medication okay but he is reporting some nausea. There was reportedly Episode emesis. We discussed the fact that with his Lamictal on top of the other medications we probably need to take the Lamictal a little slower in the beginning. We discussed the being likely with a hold and then which I did not appear as soon as he begins to show improvement in his haley. He does appear slower today but that may be secondary in part to his feeling under the weather Mental Status Exam MSE Comments: This is a well nourished, well developed white man with hospital scrubs on with adequate grooming and eye contact. No abnormal movements except for mild psychomotor but no weird gestures noted. Cooperative with exam no acute distress. Poor personal space. Speech was decreased rate and volume today. Mood described as not good, affect congruent and subdued. Thought process, organized but still having hyperreligious ramblings. Thought content: patient denies suicidal or homicidal ideation, no current paranoia but endorses sometimes experiencing it and hyper roman catholic delusions noted, and endorses auditory and visual hallucinations. Attention and concentration are intact and memory appeared reliable in some areas but unreliable in others but none were formally tested. He is alert and oriented times three but not purpose. Insight and judgment are impaired. Impulse control is impaired. Vitals/I&O/Wt Last Vital Signs Temp 97.5 F L 10/22/22 19:38 Pulse 83 10/22/22 19:38 Resp 18 10/22/22 19:38 BP 135/81 10/22/22 19:38 Pulse Ox 99 10/22/22 19:38 O2 Del Method 10/22/22 14:00 Data NPU 10/14/22 11:34 10/14/22 11:34 A&P Assessment and plan (1) Acute psychosis: (2) Severe manic bipolar 1 disorder with psychotic behavior: Plan This is a 47 year old white man with a history of trauma and genetic loading for mental health and addiction issues who presents with roman catholic delusions, clear haley representing bipolar disorder versus schizoaffective disorder bipolar type reporting he came at the request of his due to her concerns and is open to medication changes at this time. 1. Continue current medications. Increased Depakote to 1000 mg p.o. twice da hilary. increase Invega to 12 mg and recommend Invega Sustenna. Started Lamictal 25 mg p.o. daily. We will check lab work for Depakote level and decide whether to make changes to Depakote or the Trileptal 2. Encourage individual, group and milieu therapy 3. Continue q-15 minute check for safety 4. Recommend sober living treatment at the highest level of care to which the patient is willing to commit. 5. 21-day hold initiated yesterday. Involuntary Hold Information 96 Hour Hold: 96 Hour Involuntary Admission: Yes 96 Hour Hold Ending Date: 10/20/22 96 Hour Hold Ending Time: 10:17 Attestations NPU Medical Necessity Statement*: Inpatient hospitalization is medically necessary and the clinically appropriate intervention at this time. We will monitor medications and make changes as indicated. Likely length of stay is 6-9 days. Coding Level of Care Code Acute Machine Ceramic Coater for Kimber Fields Diagnoses Acute psychosis F23 Severe manic bipolar 1 disorder with psychotic behavior F31.2
[2022-10-23 14:00] VITALS: BP 125/81; PULSE 91; RESP 18; TEMP 36.2; O2SAT 98
[2022-10-23] MEDS: nicotine 4 mg lozenge MUCOUS MEM (14:07)
[2022-10-23] MEDS: ondansetron 4 MG Tablet PO (14:28)
[2022-10-23] MEDS: ondansetron 2 mg/ML SDV 2 mL 4 MG IM (15:58)
[2022-10-23 17:17] LABS: Anion Gap 10.6 (5-19); Blood Urea Nitrogen 12 mg/dL (6-20); Calcium 9.1 mg/dL (8.5-10.5); Carbon Dioxide 29 mmol/L (22-29); Chloride 91 mmol/L (98-107); Glomerular Filtration Rate 80.8 mL/min (90-130); Glucose 101 mg/dL (65-115); Osmolality Calculated 262 mOsm/kg (285-295); Potassium 4.6 mmol/L (3.5-5.1); Sodium 126 mmol/L (136-145)
[2022-10-23] MEDS: divalproex DR 500 mg Tablet PO (18:03)
--- NOTE | 2022-10-23 18:03 | P.CONIM_ITS ---
Providers/Reason For Consult Consulting Physician/Specialty*: psychiatry Reason for Consult*: hyponatremia Attending Physician: Antonino Brandon MD Primary Care Provider: Tony Faith DO History of Present Illness History of Present Illness Petey Lee is a 47 year old male with a past medical history of bipolar 1 disorder, haley, who presents [facility] currently admitted neuropsychiatric unit for exacerbation of his psychiatric symptoms. Hospitalist team was consulted, due to serum sodium 126, he came in with a serum sodium 131. Currently he is alert oriented x3, follows all commands no headache, blurry vision, no concerns of psychogenic polydipsia by nursing staff, denies any dysuria, hematuria, no increased urination, denies a history of diabetes. Den ies cardiovascular history, no history of COPD, does report drinking alcohol, but very intermittent last drink was over 2 weeks ago does report marijuana use, Review of Systems Const: Denies: fever(s) Eyes: Denies: change in vision Card: Denies: chest pain Resp: Denies: dyspnea GI: Denies: abdominal pain : Denies: flank pain or difficulty urinating Musc: Denies: muscle weakness Neuro: Denies: headache(s), numbness in extremities, weakness in extremities, sensory changes, difficulty walking, frequent falls or confusion Medications/Allergies Home Medications Medication Instructions Recorded Confirmed Last Taken Type diazepam 5 mg tablet 2.5 mg PO TID PRN BIPOLAR DISORDER 10/14/22 10/14/22 Unknown History divalproex 500 mg tablet,delayed 500 mg PO DAILY 10/14/22 10/14/22 10/13/22 History release oxcarbazepine 600 mg tablet 60 mg PO BID 10/14/22 10/14/22 10/13/22 History paliperidone 9 mg tablet,extended 9 mg PO DAILY 10/14/22 10/14/22 10/13/22 History release 24 hr quetiapine 400 mg tablet (Seroquel) 800 mg PO BEDTIME 10/15/22 10/15/22 Unknown History Allergies Allergy/AdvReac Type Severity Reaction Status Date / Time aripiprazole Allergy ADR-Anxiety Verified 10/14/22 11:18 Current Medications Generic Name Dose Route Start Last Admin Trade Name Freq PRN Reason Stop Dose Admin Acetaminophen 650 mg 10/14/22 12:40 10/18/22 15:35 Acetaminophen 325 Mg Tablet PO 650 mg Q4H PRN Administration MILD PAIN Benzocaine 1 each 10/19/22 16:41 10/19/22 16:51 Cetylpyridinium Lozenge MUCOUS MEM 1 each Q2H PRN Administration SORE THROAT Calcium Carbonate 1,000 mg 10/17/22 05:19 10/17/22 05:32 Calcium Carbonate 500 Mg Chew Tablet PO 1,000 mg Q4H PRN Administration HEARTBURN Camphor/Menthol/Phenol 1 applic 10/14/22 12:40 10/22/22 21:31 Blistex Lip Oint 7 Gm Tube TOPICAL 1 applic Q1H PRN Administration DRYNESS Divalproex Sodium 500 mg 10/23/22 18:00 10/23/22 18:[address] 500 Mg Tablet PO 500 mg BID JESSICA Administration Famotidine 20 mg 10/17/22 11:32 10/22/22 08:06 Famotidine 20 Mg Tablet PO 20 mg BID PRN Administration HEARTBURN Fluticasone Propionate 1 spray 10/20/22 08:52 10/22/22 16:45 Fluticasone Nasal [place] 16gm Btl NASAL 1 spray BID PRN Administration ALLERGIES Hydroxyzine Pamoate 50 mg 10/14/22 12:40 10/22/22 14:09 Hydroxyzine 25 Mg Capsule PO 50 mg Q6H PRN Administration ANXIETY Ibuprofen 600 mg 10/16/22 15:00 10/23/22 15:03 Ibuprofen 600 Mg Tablet PO 600 mg TID JESSICA Administration Nicotine 1 patch 10/20/22 09:34 10/23/22 08:59 Nicotine 21 Mg Patch TRANSDERMA 1 patch DAILY PRN Administration NICOTINE WITHDRAWAL Nicotine Polacrilex 4 mg 10/17/22 11:30 10/23/22 14:07 Nicotine 4 Mg Lozenge MUCOUS MEM 4 mg Q2H PRN Administration NICOTINE CRAVINGS Ondansetron HCl 4 mg 10/14/22 12:40 10/23/22 14:28 Ondansetron 4 Mg Tablet PO 4 mg Q6H PRN Administration NAUSEA AND VOMITING Oxcarbazepine 600 mg 10/15/22 09:00 10/23/22 18:03 Oxcarbazepine 300 Mg Tablet PO 600 mg BID JESSICA Administration Paliperidone 12 mg 10/20/22 09:00 10/23/22 09:00 Paliperidone Er 6 Mg Tablet PO 12 mg DAILY JESSICA Administration PFSH Acute PFSH: Medical History (Updated 10/23/22 @ 18:06 by Terrell Johnson MD) Right hip pain Right shoulder pain Surgical History (Updated 10/23/22 @ 18:05 by Terrell Johnson MD) H/O shoulder surgery Family History (Updated 10/23/22 @ 18:06 by Terrell Johnson MD) Other Bipolar 1 disorder Depression Psychiatric illness Social History Smoking and tobacco status: current every day smoker Alcohol intake: current Vitals/I&O/Wt Last Vital Signs Temp 97.2 F L 10/23/22 14:00 Pulse 91 10/23/22 14:00 Resp 18 10/23/22 14:00 BP 125/81 10/23/22 14:00 Pulse Ox 98 10/23/22 14:00 O2 Del Method 10/22/22 14:00 Physical Exam Const: COMMON NORMALS: no acute distress and patient oriented x3 HENMT: COMMON NORMALS: normocephalic HEAD & SCALP: normocephalic Eye: COMMON NORMALS: Equal, round and reactive pupils present and EOMs intact bilaterally PUPIL: Yes Equal, round and reactive pupils present Neck/C-Spine: COMMON NORMALS: no JVD Resp: COMMON NORMALS: normal respiratory effort, No retractions, No use of accessory muscles and clear to auscultation bilaterally AUSCULTATION: clear to auscultation bilaterally Cardio: COMMON NORMALS: no JVD, regular rate, regular rhythm, S1 normal heart sound present and S2 normal heart sound present RATE: regular rate RHYTHM: regular rhythm HEART SOUNDS: S1 normal heart sound present and S2 normal heart sound present GI: COMMON NORMALS: Normal to inspection, nondistended, normoactive bowel sounds present, Soft to palpation, non-tender and No hepatosplenomegaly present PALPATION: Yes Soft to palpation and Yes No hepatosplenomegaly present Extremity: COMMON NORMALS: no pedal edema Neuro: COMMON NORMALS: patient oriented x3, CN's II-XII intact bilaterally, moves all extremities and no focal motor deficits Psych: COMMON NORMALS: mental status grossly normal Data 10/14/22 11:34 10/23/22 16:22 A&P Assessment and plan (1) Hyponatremia: Plan hyponatremia -likely secondary to Depakote, Trileptal, Seroquel -Dose of Depakote has been decreased in half, dose of Seroquel has been decreased in half, Trileptal has been held -We will obtain serum sodium, TSH, A1c -Hold off on fluid therapy and doubts dehydration likely medication induced -Monitor serum sodiums every 4 hours -Full code -SCDs for DVT prophylaxis Consult Attestations Medical Necessity Statement: Patient requires hospitalization inpatient, for hyponatremia Coding Level of Care Code Acute Elementary Summer School Teacher for Kimber Fields Diagnoses Hyponatremia E87.1
[2022-10-23 18:54] LABS: Basophils % 0.4 %; Eosinophils # 0.2 10^3/uL (0.0-0.8); Eosinophils % 4.4 %; Hematocrit 37.1 % (42.0-52.0); Hemoglobin 13.1 g/dL (11.7-16.6); Lymphocytes # 2.2 10^3/uL (0.8-4.8); Mean Corpuscular HGB Conc 35.3 g/dL (30.0-36.0); Mean Corpuscular Hemoglobin 32.3 pg (28.0-34.0); Mean Corpuscular Volume 91.4 fl (80-94); Mean Platelet Volume 9.6 fL (7.4-10.4); Monocytes # 0.6 10^3/uL (0.2-0.9); Monocytes % 11.1 %; Neutrophils # 2.41 10^3/uL (1.8-7.7); Neutrophils % 43.7 %; Nucleated Red Blood Cells % 0 %; Platelet Count 231 10^3/cmm (130-400); Red Blood Count 4.06 10^6/uL (4.1-5.3); Red Cell Distribution Width 12.6 % (12.1-15.1); White Blood Count 5.5 10^3/uL (4.0-10.0)
[2022-10-23 20:00] VITALS: BP 113/77; PULSE 89; RESP 18; TEMP 36.2
[2022-10-23 20:09] VITALS: BP 113/77; PULSE 89; RESP 18; TEMP 36.2; O2SAT 98
[2022-10-23 21:45] LABS: Sodium 127 mmol/L (136-145)
--- NOTE | 2022-10-23 22:49 | PC.NURSE ---
Patient was escorted to ICU by Security and Bisi RN at 22:33 with no incident.
[2022-10-23 23:51] LABS: Estmated Average Glucose 105; Hemoglobin A1C 5.3 % (4.0-6.0)
[2022-10-23 23:58] LABS: Thyroid Stimulating Hormone 2.66 uIU/mL (0.27-4.20)
[2022-10-24] VITALS (86 sets, daily range): BP systolic 97–137; BP diastolic 69–96; PULSE 60–120; RESP 10–22; TEMP 36.7; O2SAT 98
[2022-10-24 01:01] LABS: Sodium 125 mmol/L (136-145)
[2022-10-24 01:38] LABS: Add Urine Microscopic? NO; Charge for UA Resulting for Rev
[2022-10-24 01:53] LABS: Potassium, Radom Urine 24 mmol/L; Urine Creatinine 52 mg/dL (39-259); Urine Random Chloride 72 mmol/L; Urine Random Sodium 108 mmol/L
[2022-10-24 02:05] LABS: Bilirubin Urine Neg (Negative); Blood Urine Neg (Negative); Glucose Urine UA Norm (Normal); Ketones Urine 1+ (Negative); Leukocyte Esterase Urine Negative (Negative); Nitrate Urine Negative (Negative); Protein Urine Neg (Negative); Sulfosalicylic Acid Urine Negative (Negative); Urine Appearance Clear (CLEAR); Urine Color Yellow (Yellow); Urobilinogen Urine Neg (Negative); pH Urine 8 (5-7)
[2022-10-24 05:19] LABS: Basophils % 0.4 %; Eosinophils # 0.2 10^3/uL (0.0-0.8); Eosinophils % 4.1 %; Hematocrit 36.6 % (42.0-52.0); Hemoglobin 12.8 g/dL (11.7-16.6); Lymphocytes # 1.7 10^3/uL (0.8-4.8); Lymphocytes % 35.4 %; Mean Corpuscular Hemoglobin 31.4 pg (28.0-34.0); Mean Corpuscular Volume 89.7 fl (80-94); Mean Platelet Volume 9.2 fL (7.4-10.4); Monocytes # 0.7 10^3/uL (0.2-0.9); Monocytes % 13.6 %; Neutrophils # 2.28 10^3/uL (1.8-7.7); Neutrophils % 46.3 %; Nucleated Red Blood Cells % 0 %; Platelet Count 209 10^3/cmm (130-400); Red Blood Count 4.08 10^6/uL (4.1-5.3); Red Cell Distribution Width 12.5 % (12.1-15.1); White Blood Count 4.9 10^3/uL (4.0-10.0)
[2022-10-24 05:44] LABS: Blood Urea Nitrogen 11 mg/dL (6-20); Calcium 8.9 mg/dL (8.5-10.5); Carbon Dioxide 25 mmol/L (22-29); Creatinine Clr Calc Pharmacy 116.7755; Glomerular Filtration Rate 91.3 mL/min (90-130); Glucose 100 mg/dL (65-115)
[2022-10-24 06:49] LABS: Triglycerides 87 mg/dL (0-150)
[2022-10-24 07:38] LABS: Sodium 125 mmol/L (136-145)
--- NOTE | 2022-10-24 08:59 | PC.NURSE ---
Patient refusing medications at this time. Dr. Johnson in room with patient.
[2022-10-24 09:55] LABS: Sodium 128 mmol/L (136-145); Valproic Acid Level 83.5 ug/mL (50-100)
[2022-10-24] MEDS: ibuprofen 600 mg Tablet PO ×2 (09:55→17:24)
[2022-10-24 11:08] LABS: Osmolality Calculated 259 mOsm/kg (285-295); Sodium 125 mmol/L (136-145)
[2022-10-24 11:09] LABS: Anion Gap 11.2 (5-19); Chloride 93 mmol/L (98-107); Potassium 4.2 mmol/L (3.5-5.1)
--- NOTE | 2022-10-24 12:35 | P.NPUPN_ITS ---
Subjective NPU Subjective: Patient presents today in the ICU endorsing that he is feeling much better and not feeling nauseous at all. We discussed the different changes made in medication but a plan to ultimately put Lamictal as a primary agent but that the combination of all medications might be impacting his sodium. However we noted the sodium was low when he came to the hospital. We discussed him staying the ICU until his sodium was more stable but returning to the neuropsychiatric unit once things stabilize. Mental Status Exam MSE Comments: This is a well nourished, well developed white man with hospital scrubs on with adequate grooming and eye contact. No abnormal movements except for mild psychomotor but no odd gestures noted. Cooperative with exam no acute distress. Poor personal space. Speech was decreased rate and volume today. Mood described as okay, affect congruent and subdued with no longer appeared sick. Thought process, organized but still having hyperreligious ramblings. Thought content: patient denies suicidal or homicidal ideation, no current paranoia but endorses sometimes experiencing it and hyper faith delusions noted, and endorses auditory and visual hallucinations. Attention and concentration are intact and memory appeared reliable in some areas but unreliable in others but none were formally tested. He is alert and oriented times three but not purpose. Insight and judgment are impaired. Impulse control is impaired. Vitals/I&O/Wt Last Vital Signs Temp 98.1 F 10/24/22 10:29 Pulse 66 10/24/22 07:10 Resp 12 10/24/22 07:10 BP 137/96 10/24/22 07:10 Pulse Ox 98 10/23/22 20:09 O2 Del Method 10/23/22 22:30 10/23/22 10/24/22 10/24/22 22:59 06:59 14:59 Intake Total 480 / 480 Output Total 1900 / 1900 800 / 800 Balance -1900 / -1900 -320 / -320 Data NPU 10/24/22 05:05 10/24/22 09:08 A&P Assessment and plan (1) Acute psychosis: (2) Severe manic bipolar 1 disorder with psychotic behavior: Plan This is a 47 year old white man with a history of trauma and genetic loading for mental health and addiction issues who presents with faith delusions, clear haley representing bipolar disorder versus schizoaffective disorder bipolar type reporting he came at the request of his due to her concerns and is open to medication changes at this time. 1. Continue current medications. But due to the low sodium and plan to use Lamictal as a more prominent agent we decreased Depakote to 500 mg p.o. twice daily. Continue Invega to 12 mg and recommend Invega Sustenna. Held Lamictal 25 mg p.o. daily. Depakote level was high at last night trough and therapeutic at this morning trough. Holding Trileptal will look to clean up polypharmacy 2. Encourage individual, group and milieu therapy 3. Continue q-15 minute check for safety 4. Recommend sober living treatment at the highest level of care to which the patient is willing to commit. 5. 21-day hold initiated yesterday. Involuntary Hold Information 96 Hour Hold: 96 Hour Involuntary Admission: Yes 96 Hour Hold Ending Date: 10/20/22 96 Hour Hold Ending Time: 10:17 Attestations NPU Medical Necessity Statement*: Inpatient hospitalization is medically necessary and the clinically appropriate intervention at this time. We will monitor medications and make changes as indicated. Likely length of stay is 6-9 days. Coding Level of Care Code Acute Full Stack Python Developer for Kimber Fields Diagnoses Acute psychosis F23 Severe manic bipolar 1 disorder with psychotic behavior F31.2
[2022-10-24 13:16] LABS: Sodium 127 mmol/L (136-145)
--- NOTE | 2022-10-24 14:18 | PM.PN ---
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 he just wants to leave the hospital, he also tells me that he does not want to go to the NPU, as he has a mold infection, he refuses to take all his morning medications, he sitting up and walk around the room he is alert to person, place, time he does follow commands no episodes of agitation he is actually calling his and wants me to talk to his , spoke to his over the phone, she is concerned about his acute psychosis, she tried to convince him to take his medications however he has refused, denies lightheadedness, dizziness Vitals/I&O/Wt Last Vital Signs Temp 98.1 F 10/24/22 10:29 Pulse 66 10/24/22 07:10 Resp 12 10/24/22 07:10 BP 137/96 10/24/22 07:10 Pulse Ox 98 10/23/22 20:09 O2 Del Method 10/23/22 22:30 10/23/22 10/24/22 10/24/22 22:59 06:59 14:59 Intake Total 720 / 720 Output Total 1900 / 1900 800 / 800 Balance -1900 / -1900 -80 / -80 Physical Exam Const: COMMON NORMALS: no acute distress Resp: COMMON NORMALS: normal respiratory effort, No retractions, No use of accessory muscles and clear to auscultation bilaterally AUSCULTATION: clear to auscultation bilaterally Cardio: COMMON NORMALS: regular rate, regular rhythm, S1 normal heart sound present and S2 normal heart sound present RATE: regular rate RHYTHM: regular rhythm HEART SOUNDS: S1 normal heart sound present and S2 normal heart sound present GI: COMMON NORMALS: Normal to inspection, nondistended, normoactive bowel sounds present and non-tender Extremity: COMMON NORMALS: no pedal edema Data 10/24/22 05:05 10/24/22 12:40 A&P Assessment and plan (1) Hyponatremia: Plan hyponatremia -likely secondary to Depakote, Trileptal, Seroquel -Dose of Depakote has been decreased in half, dose of Seroquel has been decreased in half, Trileptal has been held -Serum sodium improving to 128 -Hold off on fluid therapy and doubts dehydration likely medication induced -Monitor serum sodiums every 4 hours -Full code -SCDs for DVT prophylaxis Acute psychosis, encouraged patient to take p.o. medications Plan for today monitor serum sodium, likely discharge back to n.p.U. tomorrow Attestations Medical Necessity Statement*: Patient requires hospitalization for hyponatremia Coding Level of Care Code Acute Vehicle Glass Technician for Kimber Fields Diagnoses Hyponatremia E87.1
[2022-10-24] MEDS: diazePAM 5 mg Tablet 2.5 MG PO (17:28)
[2022-10-24] MEDS: quetiapine 100 mg Tablet PO (21:59)
--- NOTE | 2022-10-24 22:00 | PC.NURSE ---
Medications Patient refused evening dose of Seroquel 300 mg (patient reports this makes me very sleepy and groggy ) and Ibuprofen 600 mg ( I don't have any pain present at this time ). Patient agreed to take Seroquel 100 mg PO
[2022-10-25 04:51] LABS: Basophils % 0.2 %; Eosinophils # 0.1 10^3/uL (0.0-0.8); Eosinophils % 2.4 %; Hematocrit 39.2 % (42.0-52.0); Hemoglobin 13.6 g/dL (11.7-16.6); Lymphocytes # 2.4 10^3/uL (0.8-4.8); Lymphocytes % 43.5 %; Mean Corpuscular HGB Conc 34.7 g/dL (30.0-36.0); Mean Corpuscular Hemoglobin 31.6 pg (28.0-34.0); Mean Corpuscular Volume 91.2 fl (80-94); Mean Platelet Volume 9.6 fL (7.4-10.4); Monocytes # 0.9 10^3/uL (0.2-0.9); Monocytes % 16.4 %; Neutrophils # 2.01 10^3/uL (1.8-7.7); Neutrophils % 36.9 %; Nucleated Red Blood Cells % 0 %; Platelet Count 234 10^3/cmm (130-400); Red Cell Distribution Width 12.7 % (12.1-15.1); White Blood Count 5.4 10^3/uL (4.0-10.0)
[2022-10-25 05:14] LABS: Anion Gap 12.2 (5-19); Blood Urea Nitrogen 12 mg/dL (6-20); Calcium 9.2 mg/dL (8.5-10.5); Carbon Dioxide 27 mmol/L (22-29); Chloride 95 mmol/L (98-107); Glomerular Filtration Rate 80.8 mL/min (90-130); Glucose 92 mg/dL (65-115); Osmolality Calculated 269 mOsm/kg (285-295); Potassium 4.2 mmol/L (3.5-5.1); Sodium 130 mmol/L (136-145)
[2022-10-25 05:27] VITALS: PULSE 72
[2022-10-25 06:00] VITALS: BMI 26.6
[2022-10-25] MEDS: ibuprofen 600 mg Tablet PO ×2 (08:07→19:29)
[2022-10-25] MEDS: hyDROXYzine 25 mg Capsule 50 MG PO (08:07)
--- NOTE | 2022-10-25 08:09 | PC.NURSE ---
Patient refused scheduled morning medications. He did request Ibuprofen and Vistaril for anxiety. Patient requested to see the name of the medication on the packets as I was putting them in the medication cup.
[2022-10-25] MEDS: acetaminophen 325 mg Tablet 650 MG PO (10:35)
[2022-10-25 11:05] VITALS: BP 99/79; PULSE 103; RESP 18; O2SAT 92
[2022-10-25 11:20] VITALS: BP 100/66; PULSE 86; RESP 17; TEMP 36.7; O2SAT 98
--- NOTE | 2022-10-25 11:25 | PC.ADMIT ---
[email or web address] [facility] Admission Note: The patient,Petey Lee,47 y/o, was given written information regarding hospital policies, unit procedures and contact persons. Patient's smoking status: current every day smoker. Vital Signs - 8 hr 10/25/22 05:27 10/25/22 11:05 10/25/22 11:20 Temperature 98.0 F Pulse Rate 72 103 H 86 Respiratory Rate 18 17 Blood Pressure 99/79 100/66 Pulse Oximetry 92 98 Oxygen Delivery Method Room Air Room Air PT BACK ON NPU UNIT AFTER STAY IN ICU FOR MEDICAL NEEDS. PT IS CALM ON ARRIVAL TO UNIT. PT SPEECH IS DELUSIONAL, MAKING STATEMENTS ABOUT SMELLING THE OXYGEN IN THE AIR AND BEING SENSITIVE TO IT, WHEN ASKED ABOUT WHY HE HAS REFUSED HIS DEPOKOTE AND INVEGA TODAY AND YESTERDAY PT STATES HE HAS FIGURED HIMSELF OUT AND IS WILLING TO GIVE UP HIS TO LIVE HIS LIFE, PT THEN BEGINS RAMBLING SPEECH ABOUT LIFE AND HOW HE IS GOING TO TAKE CARE OF HIMSELF. PT STILL REFUSES ORDERED MEDS. PT DENIES SI/HI/AVH, CALM AND COOPERATIVE WITH ASSESSMENT, THIS NURSE WILL REPORT TO DR GUIDO PTS NONCOMPLIANCE WITH PO SCHEDULED MEDS
--- NOTE | 2022-10-25 12:12 | PM.PN ---
Subjective Subjective: Patient was seen this morning, he is ambulating around his ICU room, no headache, no blurry vision, no nausea, no vomiting Vitals/I&O/Wt Last Vital Signs Temp 98.0 F 10/25/22 11:20 Pulse 86 10/25/22 11:20 Resp 17 10/25/22 11:20 BP 100/66 10/25/22 11:20 Pulse Ox 98 10/25/22 11:20 O2 Del Method 10/25/22 11:20 10/24/22 10/25/22 10/25/22 22:59 06:59 14:59 Intake Total 240 / 960 720 / 720 Output Total 800 / 800 Balance 240 / 160 -80 / -80 Weight last 48 hrs Weight 86.75 kg Physical Exam Const: COMMON NORMALS: no acute distress Resp: COMMON NORMALS: normal respiratory effort, No retractions, No use of accessory muscles and clear to auscultation bilaterally AUSCULTATION: clear to auscultation bilaterally Cardio: COMMON NORMALS: regular rate, regular rhythm, S1 normal heart sound present and S2 normal heart sound present RATE: regular rate RHYTHM: regular rhythm HEART SOUNDS: S1 normal heart sound present and S2 normal heart sound present GI: COMMON NORMALS: Normal to inspection, nondistended, normoactive bowel sounds present and non-tender Extremity: COMMON NORMALS: no pedal edema Data 10/25/22 04:10 10/25/22 04:10 A&P Assessment and plan (1) Hyponatremia: Plan hyponatremia -likely secondary to Depakote, Trileptal, Seroquel -Dose of Depakote has been decreased in half, dose of Seroquel has been decreased in half, Trileptal has been held -Serum sodium 130 can move to neuropsychiatric unit -Hold off on fluid therapy and doubts dehydration likely medication induced -Monitor serum sodiums q. 24 -Full code -SCDs for DVT prophylaxis Acute psychosis, encouraged patient to take p.o. medications Plan for today monitor serum sodium every 24 hours, will move to neuropsychiatric unit this afternoon Attestations Medical Necessity Statement*: Patient requires hospitalization for acute psychosis, hyponatremia will be moved to 2 neuropsychiatric unit Coding Level of Care Code Acute Financial Solutions Advisor for Kimber Fields Diagnoses Hyponatremia E87.1
[2022-10-25] MEDS: paliperidone ER 3 mg Tablet 12 MG PO (13:00)
[2022-10-25] MEDS: divalproex DR 500 mg Tablet PO ×2 (13:00→17:03)
[2022-10-25 14:00] VITALS: BP 101/67; PULSE 87; RESP 17; TEMP 36.7; O2SAT 98
[2022-10-25] MEDS: diazePAM 5 mg Tablet 2.5 MG PO (14:20)
--- NOTE | 2022-10-25 18:13 | W.PM.NPUPNS ---
Subjective NPU Subjective: This is a 47-year-old white male with a history of bipolar type I disorder admitted with psychotic symptoms and haley along with a history of PTSD. Patient was transferred back to the neuropsychiatric unit today after a resolution in the patient's hyponatremia. 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 He reported that he wishes to receive a shot for his bipolar disorder and admitted to having problems with maintaining compliance with his medications. He reported no problems with depression currently.He reported good energy and concentration but reported that his thoughts continue to race at times. Mental Status Exam MSE Comments: This is a well nourished, well developed white man with hospital scrubs on with adequate grooming and eye contact. No abnormal movements except for mild psychomotor retardation. No abnormal involuntary motor movements. He was cooperative with exam no acute distress. Poor personal space appreciated. Speech was normal in rate, rhythm, and volume today. Mood described as better. , His affect was mood congruent and intense. Thought process was linear and organized. Thought content: patient denies suicidal or homicidal ideation, no current paranoia but endorses sometimes experiencing it and hyperreligiousity noted with overvalued ideas. He did not appear to be responding to internal stimuli. Attention and concentration are intact and memory appeared reliable in some areas but unreliable in others but none were formally tested. He is alert and oriented times three but not purpose. Insight and judgment are impaired. Impulse control is impaired. Vitals/I&O/Wt Last Vital Signs Temp 98.0 F 10/25/22 14:00 Pulse 87 10/25/22 14:00 Resp 17 10/25/22 14:00 BP 101/67 10/25/22 14:00 Pulse Ox 98 10/25/22 14:00 O2 Del Method 10/25/22 11:20 10/25/22 10/25/22 10/25/22 06:59 14:59 22:59 Intake Total 720 / 720 360 / 1080 Output Total 800 / 800 800 / 1600 Balance -80 / -80 -440 / -520 Weight last 48 hrs Weight 86.75 kg Data NPU 10/25/22 04:10 10/25/22 04:10 A&P Assessment and plan (1) Acute psychosis: (2) Severe manic bipolar 1 disorder with psychotic behavior: Plan This is a 47 year old white man with a history of trauma and genetic loading for mental health and addiction issues who presents with hinduism delusions, clear haley representing bipolar disorder versus schizoaffective disorder bipolar type reporting he came at the request of his due to her concerns and is open to medication changes at this time. 1. Continue current medications. Restart Depakote at 1000 mg p.o. twice daily. Continue Invega to 12 mg and begin Invega Sustenna. . 2. Encourage individual, group and milieu therapy 3. Continue q-15 minute check for safety 4. Recommend sober living treatment at the highest level of care to which the patient is willing to commit. 5. 21-day hold initiated yesterday. Involuntary Hold Information 96 Hour Hold: 96 Hour Involuntary Admission: Yes 96 Hour Hold Ending Date: 10/20/22 96 Hour Hold Ending Time: 10:17 Attestations NPU Medical Necessity Statement*: Inpatient hospitalization is medically necessary and the clinically appropriate intervention at this time. We will monitor medications and make changes as indicated. Likely length of stay is 6-9 days. 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
[2022-10-25] MEDS: quetiapine 100 mg Tablet PO (19:30)
[2022-10-25] MEDS: quetiapine 300 mg Tablet PO (19:30)
[2022-10-25 20:31] VITALS: RESP 18
[2022-10-26 06:00] VITALS: RESP 16
[2022-10-26] MEDS: ibuprofen 600 mg Tablet PO ×3 (08:30→21:00)
[2022-10-26] MEDS: divalproex DR 500 mg Tablet PO ×2 (08:30→18:12)
[2022-10-26] MEDS: paliperidone ER 6 mg Tablet 12 MG PO (08:30)
[2022-10-26 08:37] LABS: Anion Gap 13.8 (5-19); Blood Urea Nitrogen 14 mg/dL (6-20); Calcium 9.5 mg/dL (8.5-10.5); Carbon Dioxide 28 mmol/L (22-29); Chloride 99 mmol/L (98-107); Glomerular Filtration Rate 72.4 mL/min (90-130); Glucose 97 mg/dL (65-115); Osmolality Calculated 284 mOsm/kg (285-295); Potassium 3.8 mmol/L (3.5-5.1); Sodium 137 mmol/L (136-145)
[2022-10-26] MEDS: paliperidone palmitate 234 mg Syringe IM (09:07)
--- NOTE | 2022-10-26 09:12 | PC.NURSE ---
invega inj given IM without issue, pt jhon well
[2022-10-26 14:00] VITALS: BP 120/80; PULSE 108; RESP 20; TEMP 36.8; O2SAT 98
[2022-10-26] MEDS: acetaminophen 325 mg Tablet 650 MG PO (14:02)
[2022-10-26 15:45] LABS: Osmolality Urine 379 mOsm/kg (50-1200)
[2022-10-26 15:45] LABS: Osmolality Serum 262 mOsm/kg (278-305)
[2022-10-26 20:12] VITALS: BP 121/65; PULSE 108; RESP 18; TEMP 36.6; O2SAT 94
--- NOTE | 2022-10-26 20:19 | P.NPUPN_ITS ---
Subjective NPU Subjective: This is a 47-year-old white male with a history of bipolar type I disorder admitted with psychotic symptoms and haley along with a history of PTSD. Patient intramuscular Invega today with no reported complications. He had reported that he wished to leave here as soon as possible and reported that he was willing to do what ever he needed to to leave here soon. He had acknowledged having difficulties with taking medications in the past and admitted to having stress with the of a family member that had triggered his most recent episode and latest hospitalization both here and at another facility earlier this year. He reports continued improvement although it was noted that he had remained somewhat intrusive and demanding at times. He had endorsed occasional racing thoughts but reported improved sleep last night. Mental Status Exam MSE Comments: This is a well nourished, well developed white man with hospital scrubs on with adequate grooming and eye contact. No abnormal movements except for mild psychomotor retardation. No abnormal involuntary motor movements. He was cooperative with exam no acute distress. Poor personal space appreciated as he was intrusive. Speech was normal in rate, rhythm, and volume today. Mood described as better. , His affect was mood congruent and intense. Thought process was linear and organized. Thought content: patient denies suicidal or homicidal ideation. There was continued evidence of overvalued ideas. He did not appear to be responding to internal stimuli. Attention and concentration are intact and memory appeared reliable in some areas but unreliable in others but none were formally tested. He is alert and oriented times three but not purpose. Insight and judgment are impaired. Impulse control is impaired. Vitals/I&O/Wt Last Vital Signs Temp 97.9 F 10/26/22 20:12 Pulse 108 H 10/26/22 20:12 Resp 18 10/26/22 20:12 BP 121/65 10/26/22 20:12 Pulse Ox 94 10/26/22 20:12 O2 Del Method 10/25/22 11:20 Weight last 48 hrs Weight 86.75 kg Data NPU 10/25/22 04:10 10/26/22 08:05 A&P Assessment and plan (1) Acute psychosis: (2) Severe manic bipolar 1 disorder with psychotic behavior: Plan This is a 47 year old white man with a history of trauma and genetic loading for mental health and addiction issues who presents with pentecostal delusions, clear haley representing bipolar disorder versus schizoaffective disorder bipolar type reporting he came at the request of his due to her concerns and is open to medication changes at 1. Continue Depakote at 1000 mg daily, Seroquel 400mg at night, reduce Invega to 9 mg as patient received 234mg of invega sustenna. 2. Encourage individual, group and milieu therapy 3. Continue q-15 minute check for safety 4. Recommend sober living treatment at the highest level of care to which the patient is willing to commit. 5. 21-day hold initiated yesterday. Involuntary Hold Information 96 Hour Hold: 96 Hour Involuntary Admission: Yes 96 Hour Hold Ending Date: 10/20/22 96 Hour Hold Ending Time: 10:17 Attestations NPU Medical Necessity Statement*: Inpatient hospitalization is medically necessary and the clinically appropriate intervention at this time. We will monitor medications and make changes as indicated. Likely length of stay is 5-7 days. 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
[2022-10-26] MEDS: quetiapine 100 mg Tablet PO (21:00)
[2022-10-26] MEDS: quetiapine 300 mg Tablet PO (21:00)
[2022-10-27 05:28] VITALS: BP 107/67; PULSE 114; RESP 18; TEMP 36.3; O2SAT 97
[2022-10-27] MEDS: paliperidone ER 6 mg Tablet 9 MG PO (08:28)
[2022-10-27] MEDS: divalproex DR 500 mg Tablet PO ×2 (08:29→17:13)
[2022-10-27] MEDS: ibuprofen 600 mg Tablet PO ×3 (08:29→20:25)
[2022-10-27] MEDS: cetylpyridinium Lozenge 1 EACH MUCOUS MEM ×2 (12:30→18:44)
[2022-10-27] MEDS: acetaminophen 325 mg Tablet 650 MG PO (13:42)
[2022-10-27 14:00] VITALS: BP 119/79; PULSE 87; RESP 18; TEMP 36.3; O2SAT 99
--- NOTE | 2022-10-27 19:17 | W.PM.NPUPNS ---
Subjective NPU Subjective: This is a 47-year-old white male with a history of bipolar type I disorder admitted with psychotic symptoms and haley along with a history of PTSD. Patient had been redirectable on the milieu. He reported no side effects from his medications. He had expressed concern regarding his previous medication doses including higher doses of Depakote as he reported that it concerned his pancreas and he had had a family member who had developed pancreatic cancer and felt that they may be related to 1 another. He had reported that he continued to believe in medications somehow affecting him spiritually and that these changes in his body were of some personal significance to him. He reports that he would be comfortable with receiving this medication (Invega) intramuscularly on and out patient basis as well. He denied any depressed mood. He had reported adequate sleep. Mental Status Exam MSE Comments: This is a well nourished, well developed white man with hospital scrubs on with adequate grooming and eye contact. No abnormal movements appreciated today. He was cooperative with exam and in no acute distress. Poor personal space appreciated as he was intrusive. Speech was normal in rate, rhythm, and volume today. Mood described as better. , His affect was mood incongruent and intense. Thought process was linear and organized. Thought content: patient denies suicidal or homicidal ideation. There was continued evidence of overvalued ideas and illusory correlations and grandiose thinking. He did not appear to be responding to internal stimuli. Attention and concentration are intact and memory appeared reliable in some areas but unreliable in others but none were formally tested. He is alert and oriented to person place and time.. Insight and judgment are impaired. Impulse control is impaired. Vitals/I&O/Wt Last Vital Signs Temp 97.4 F L 10/27/22 14:00 Pulse 87 10/27/22 14:00 Resp 18 10/27/22 14:00 BP 119/79 10/27/22 14:00 Pulse Ox 99 10/27/22 14:00 O2 Del Method 10/25/22 11:20 Data NPU 10/25/22 04:10 10/26/22 08:05 A&P Assessment and plan (1) Acute psychosis: (2) Severe manic bipolar 1 disorder with psychotic behavior: Plan This is a 47 year old white man with a history of trauma and genetic loading for mental health and addiction issues who presents with adventist delusions, clear haley representing bipolar disorder versus schizoaffective disorder bipolar type reporting he came at the request of his due to her concerns and is open to medication changes at 1. Switch to Depakote ER 1000mg in am beginning tommorow. Seroquel 400mg at night, reduce Invega to 6mg as patient received 234mg of invega sustenna. 2. Encourage individual, group and milieu therapy 3. Continue q-15 minute check for safety 4. Recommend sober living treatment at the highest level of care to which the patient is willing to commit. 5. 21-day hold initiated yesterday. Involuntary Hold Information 96 Hour Hold: 96 Hour Involuntary Admission: Yes 96 Hour Hold Ending Date: 10/20/22 96 Hour Hold Ending Time: 10:17 Attestations NPU Medical Necessity Statement*: Inpatient hospitalization is medically necessary and the clinically appropriate intervention at this time. We will monitor medications and make changes as indicated. Likely length of stay is 5-7 days. 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
[2022-10-27 20:20] VITALS: BP 114/72; PULSE 94; RESP 18; TEMP 36.9; O2SAT 97
[2022-10-27] MEDS: quetiapine 100 mg Tablet PO (20:25)
[2022-10-27] MEDS: quetiapine 300 mg Tablet PO (20:25)
[2022-10-28 05:55] VITALS: BP 111/64; PULSE 102; RESP 18; TEMP 36.7; O2SAT 95
[2022-10-28] MEDS: nicotine 21 mg Patch 1 PATCH TRANSDERMA (09:36)
[2022-10-28] MEDS: paliperidone ER 6 mg Tablet PO (11:13)
[2022-10-28] MEDS: divalproex ER 500 mg Tablet (24H) 1000 MG PO (11:13)
[2022-10-28] MEDS: ibuprofen 600 mg Tablet PO ×3 (11:13→19:43)
[2022-10-28 14:00] VITALS: BP 142/74; PULSE 88; RESP 18; TEMP 36.6; O2SAT 99
--- NOTE | 2022-10-28 18:01 | P.NPUPN_ITS ---
Subjective NPU Subjective: This is a 47-year-old white male with a history of bipolar type I disorder admitted with psychotic symptoms and haley along with a history of PTSD. The patient continued to remain somewhat intrusive on the milieu. Patient had indicated that he had special relationships and were related to s everal different people as he had kept a notebook of interesting facts that he stated supported his theories. He reported that he felt that spiritual healing could be successful at managing his haley. He had reported that he would do what ever his had told him regarding his bipolar disorder but stated that he was ready to return home. The junior copywriter of this note had spoken with the patient's what who had indicated that she felt that he was improving but continued to appear different than his baseline in regards to his mood. He continued to minimize any racing thoughts. He denied any thoughts of hurting himself or others. He had expressed concerns about various medications in the past but stated that he was willing to continue with the Invega as prescribed. Mental Status Exam MSE Comments: This is a well nourished, well developed white man with hospital scrubs on with adequate grooming and eye contact. No abnormal movements appreciated today. He was cooperative with exam and in no acute distress. Poor personal space appreciated as he remained intrusive. Speech was pressured in regards to rate, rhythm, and normal volume today. Mood described as better. , His affect was grandiose and intense. Thought process was linear and organized. Thought content: patient denies suicidal or homicidal ideation. There was continued evidence of overvalued ideas and illusory correlations and grandiose thinking. He did not appear to be responding to internal stimuli. Attention and concentration are intact and memory appeared reliable in some areas but unreliable in others but none were formally tested. He is alert and oriented to person place and time.. Insight and judgment are impaired. Impulse control is impaired. Vitals/I&O/Wt Last Vital Signs Temp 98 F 10/28/22 14:00 Pulse 88 10/28/22 14:00 Resp 18 10/28/22 14:00 BP 142/74 10/28/22 14:00 Pulse Ox 99 10/28/22 14:00 O2 Del Method 10/28/22 14:00 Data NPU 10/25/22 04:10 10/26/22 08:05 A&P Assessment and plan (1) Acute psychosis: (2) Severe manic bipolar 1 disorder with psychotic behavior: Plan This is a 47 year old white man with a history of trauma and genetic loading for mental health and addiction issues who presents with caodaism delusions, clear haley representing bipolar disorder versus schizoaffective disorder bipolar type reporting he came at the request of his due to her concerns and is open to medication changes at 1. INcrease Depakote ER to 1250mg in am beginning tommorow. Seroquel 400mg at night, continue Invega at 6mg as patient received 234mg of invega sustenna on 10/27/22. 2. Encourage individual, group and milieu therapy 3. Continue q-15 minute check for safety 4. Recommend sober living treatment at the highest level of care to which the patient is willing to commit. 5. 21-day hold initiated yesterday. Involuntary Hold Information 96 Hour Hold: 96 Hour Involuntary Admission: Yes 96 Hour Hold Ending Date: 10/20/22 96 Hour Hold Ending Time: 10:17 Attestations NPU Medical Necessity Statement*: Inpatient hospitalization is medically necessary and the clinically appropriate intervention at this time. We will monitor medications and make changes as indicated with likely length of stay is 5-7 days. 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
[2022-10-28] MEDS: quetiapine 300 mg Tablet PO (20:12)
[2022-10-28] MEDS: quetiapine 100 mg Tablet PO (20:12)
[2022-10-28 20:24] VITALS: BP 112/73; PULSE 110; RESP 18; TEMP 36.7; O2SAT 96
[2022-10-28] MEDS: cetylpyridinium Lozenge 1 EACH MUCOUS MEM (20:35)
[2022-10-29 06:00] VITALS: RESP 16
[2022-10-29 06:20] VITALS: BP 120/68; PULSE 111; RESP 18; TEMP 36.6; O2SAT 97
[2022-10-29] MEDS: cetylpyridinium Lozenge 1 EACH MUCOUS MEM ×2 (07:53→13:26)
[2022-10-29] MEDS: ibuprofen 600 mg Tablet PO ×3 (09:11→19:51)
[2022-10-29] MEDS: paliperidone ER 6 mg Tablet PO (09:11)
[2022-10-29] MEDS: divalproex ER 500 mg Tablet (24H) 1250 MG PO (09:11)
[2022-10-29 14:00] VITALS: BP 139/85; PULSE 101; RESP 19; TEMP 36.5; O2SAT 99
[2022-10-29] MEDS: hyDROXYzine 25 mg Capsule 50 MG PO ×2 (14:04→19:51)
--- NOTE | 2022-10-29 14:12 | PC.NURSE ---
PRN Health Technician Hearing Patient stated he was feeling very jittery and anxious to meet his and had been pacing the hallway. This RN administered 50 mg hydroxyzine PO to patient.
[2022-10-29] MEDS: OLANZapine 5 mg ODT PO (17:48)
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
--- NOTE | 2022-10-29 18:15 | P.NPUPN_ITS ---
Subjective NPU Subjective: This is a 47-year-old white male with a history of bipolar type I disorder admitted with psychotic symptoms and haley along with a history of PTSD. Patient had a good visit with his . He had reported feeling disappointed that he was unable to return home but states that he is getting be tter every day. He continued to describe having a great spiritual relationship with others on the unit. He reported having some theories regarding being related to others here through marriage or through distant relationships from the past. He had been engaging in appropriate self-care. 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 Mental Status Exam MSE Comments: This is a well nourished, well developed white man with hospital scrubs on with adequate grooming and eye contact. No abnormal movements appreciated today. He was cooperative with exam and in no acute distress. Poor personal space appreciated as he remained intrusive. Speech was pressured in regards to rate, normal rhythm, and normal volume today. Mood described as better. , His affect was grandiose and intense. Thought process was circumstantial at times, Thought content: patient denies suicidal or homicidal ideation. There was continued evidence of overvalued ideas and illusory correlations and grandiose thinking. He did not appear to be responding to internal stimuli. Attention and concentration are intact and memory appeared reliable in some areas but unreliable in others but none were formally tested. He is alert and oriented to person place and time.. Insight and judgment are impaired. Impulse control is impaired. Vitals/I&O/Wt Last Vital Signs Temp 97.7 F 10/29/22 14:00 Pulse 101 H 10/29/22 14:00 Resp 19 H 10/29/22 14:00 BP 139/85 10/29/22 14:00 Pulse Ox 99 10/29/22 14:00 O2 Del Method 10/28/22 14:00 Data NPU 10/25/22 04:10 10/26/22 08:05 A&P Assessment and plan (1) Acute psychosis: (2) Severe manic bipolar 1 disorder with psychotic behavior: Plan This is a 47 year old white man with a history of trauma and genetic loading for mental health and addiction issues who presents with muslim delusions, clear haley representing bipolar disorder versus schizoaffective disorder bipolar type reporting he came at the request of his due to her concerns and is open to medication changes at 1. Continue Depakote ER to 1250mg in am. Seroquel 400mg at night, continue Invega at 6mg as patient received 234mg of invega sustenna on 10/27/22. 2. Encourage individual, group and milieu therapy 3. Continue q-15 minute check for safety 4. Recommend sober living treatment at the highest level of care to which the patient is willing to commit. 5. 21-day hold initiated yesterday. Involuntary Hold Information 96 Hour Hold: 96 Hour Involuntary Admission: Yes 96 Hour Hold Ending Date: 10/20/22 96 Hour Hold Ending Time: 10:17 Attestations NPU Medical Necessity Statement*: Inpatient hospitalization is medically necessary and the clinically appropriate intervention at this time. We will monitor medications and make changes as indicated with likely length of stay is 5-7 days. 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
[2022-10-29 19:23] VITALS: BP 113/77; PULSE 90; RESP 18; TEMP 36.8; O2SAT 98
[2022-10-29] MEDS: quetiapine 100 mg Tablet PO (19:51)
[2022-10-29] MEDS: quetiapine 300 mg Tablet PO (19:51)
[2022-10-30] MEDS: cetylpyridinium Lozenge 1 EACH MUCOUS MEM ×2 (05:04→17:00)
[2022-10-30 05:57] VITALS: BP 119/70; PULSE 124; RESP 18; TEMP 36.3; O2SAT 97
[2022-10-30] MEDS: famotidine 20 mg Tablet PO (08:25)
[2022-10-30] MEDS: paliperidone ER 6 mg Tablet PO (08:25)
[2022-10-30] MEDS: ibuprofen 600 mg Tablet PO ×3 (08:25→20:41)
[2022-10-30] MEDS: divalproex ER 500 mg Tablet (24H) 1250 MG PO (08:26)
[2022-10-30] MEDS: OLANZapine 5 mg ODT PO (13:52)
--- NOTE | 2022-10-30 13:52 | PC.NURSE ---
PRN Crimping Machine Operator Patient clenching jaw and when we talked he stated he gets anxious before his comes to visit and feels he needs to calm down. Zyprexa 10 mg ODT administered.
[2022-10-30 14:00] VITALS: BP 124/78; PULSE 98; RESP 18; TEMP 36.8; O2SAT 98
--- NOTE | 2022-10-30 19:16 | P.NPUPN_ITS ---
Subjective NPU Subjective: This is a 47-year-old white male with a history of bipolar type I disorder admitted with psychotic symptoms and haley along with a history of PTSD. The patient had been seen today again while on a visit with his . He has been showing some improvement and progress here in the milieu with less intrusive behavior noted. He continued to show evidence of grandiosity as he continued to expand on various conspiracy theories and reported having a special relationship with spirits and reported his love for others. The patient had been redirectable and reported adequate sleep. He had acknowledged having periods of times when he was manic where he could not recall the details and his had clarified the actual circumstances of events that patient had incorrectly processed. He had minimized any racing thoughts although he stated that his mind is often moving fast for people. Mental Status Exam MSE Comments: This is a well nourished, well developed white man with hospital scrubs on with adequate grooming and eye contact. No abnormal movements appreciated today. He was cooperative with exam and in no acute distress. He was less intrusive. Speech was less pressured in regards to rate, normal rhythm, and normal volume today. Mood described as good. His affect remained grandiose but less intense. Thought process was circumstantial at times,but more linear. Thought content: patient denies suicidal or homicidal ideation. There was continued evidence of overvalued ideas and illusory correlations and grandiose thinking. He did not appear to be responding to internal stimuli. Attention and concentration are intact and memory appeared reliable in some areas but unreliable in others but none were formally tested. He is alert and oriented to person place and time. Insight and judgment are impaired. Impulse control is impaired. Vitals/I&O/Wt Last Vital Signs Temp 98.2 F 10/30/22 14:00 Pulse 98 10/30/22 14:00 Resp 18 10/30/22 14:00 BP 124/78 10/30/22 14:00 Pulse Ox 98 10/30/22 14:00 O2 Del Method 10/28/22 14:00 Data NPU 10/25/22 04:10 10/26/22 08:05 A&P Assessment and plan (1) Acute psychosis: (2) Severe manic bipolar 1 disorder with psychotic behavior: Plan This is a 47 year old white man with a history of trauma and genetic loading for mental health and addiction issues who presents with cheondoism delusions, clear haley representing bipolar disorder versus schizoaffective disorder bipolar type reporting he came at the request of his due to her concerns and is open to medication changes at 1. Continue Depakote ER to 1250mg in am. Seroquel 400mg at night, continue Invega at 6mg as patient received 234mg of invega sustenna on 10/27/22. 157mg of invega sustenna ordered for 11/03/22. 2. Encourage individual, group and milieu therapy 3. Continue q-15 minute check for safety 4. Recommend sober living treatment at the highest level of care to which the patient is willing to commit. 5. 21-day hold initiated yesterday. Involuntary Hold Information 96 Hour Hold: 96 Hour Involuntary Admission: Yes 96 Hour Hold Ending Date: 10/20/22 96 Hour Hold Ending Time: 10:17 Attestations NPU Medical Necessity Statement*: Inpatient hospitalization is medically necessary and the clinically appropriate intervention at this time. We will monitor medications and make changes as indicated with likely length of stay is 5-7 days. Coding Level of Care Code Established Pt Acute Health Services Information Specialist for [facility] Patient Type Established History Problem Focused Exam Problem Focused Medical Decision Making Straight Forward Diagnoses Acute psychosis F23 Severe manic bipolar 1 disorder with psychotic behavior F31.2
[2022-10-30 20:41] VITALS: BP 143/98; PULSE 106; RESP 18; TEMP 37; O2SAT 97
[2022-10-30] MEDS: quetiapine 100 mg Tablet PO (20:42)
[2022-10-30] MEDS: quetiapine 300 mg Tablet PO (20:42)
[2022-10-31] MEDS: hyDROXYzine 25 mg Capsule 50 MG PO (05:07)
[2022-10-31] MEDS: acetaminophen 325 mg Tablet 650 MG PO ×2 (05:07→13:32)
[2022-10-31 05:36] VITALS: BP 109/73; PULSE 105; RESP 18; TEMP 36.3; O2SAT 96
[2022-10-31] MEDS: cetylpyridinium Lozenge 1 EACH MUCOUS MEM (05:45)
[2022-10-31] MEDS: calcium carbonate 500 mg Chew Tablet 1000 MG PO (06:47)
[2022-10-31] MEDS: bismuth subsalicylate 240 mL Btl 15 ML PO (07:34)
[2022-10-31] MEDS: paliperidone ER 6 mg Tablet PO (09:09)
[2022-10-31] MEDS: ibuprofen 600 mg Tablet PO ×3 (09:09→20:16)
[2022-10-31] MEDS: divalproex ER 500 mg Tablet (24H) 1250 MG PO (09:10)
[2022-10-31] MEDS: OLANZapine 5 mg ODT PO ×2 (09:15→14:14)
[2022-10-31] MEDS: diazePAM 5 mg Tablet 2.5 MG PO (09:27)
[2022-10-31] MEDS: diphenhydrAMINE 50 mg Capsule PO (09:27)
--- NOTE | 2022-10-31 13:02 | PC.NURSE ---
Pt up to the nurses station at the beginning of the shift complaining of abd pain along his upper abdomen. Abd firm, active bowel sounds x 4. Staff medicated the pt with bismuth subsalicylate per his request. Pt believed the pain was because of his depakote. Pt's abd was firm to the touch with active bowel sounds throughout. Offered to have patient hold his depakote until he could speak with the MD. Pt declined to do this as he's concerned it might delay his departure from the hospital. Pt then began perseverating on there being mold in the environment and began pointing to the ceiling where stains were noted on the ceiling tiles. Pt verbalized he was very sensitive to mold and he demanded to be tested. Petey talked about this issue with another pt and then began asking for HA's phone number and wanted to file a complaint. Pt medicated with zyprexa and Valium as he was becoming agitated. Staff provided him the opportunity to speak with the [place]. Pt was demanding to be released because it wasn't healthy for him to be here. Pt began walking around wearing a mask, then covered his head and face with towel. Pt reported his skin was burning because of the mold. No changes noted to the pt's skin. Pt was encouraged to remain in his room for a while in order to limit any exposure. Pt said he thought that was a good idea, but he didn't stay in his room. He came back out after only a couple of minutes. He reported he'd had a BM, but it didn't do much for his abdominal discomfort. Pt called his marketing analytics specialist, but was unable to reach him. Staff received call from the hospital trimming press operator saying someone was calling wanting the crisis line. Pt was redirected. Pt saw the Car Supervisor and shared his concerns. He rested in bed for a while and upon rising said he felt better.
[2022-10-31 14:00] VITALS: BP 121/69; PULSE 93; RESP 20; TEMP 36.4; O2SAT 98
--- NOTE | 2022-10-31 15:59 | W.PM.NPUPNS ---
Subjective NPU Subjective: Patient presented today continuing to struggle with his connection to reality and thought disorder. Sat with he and his and we discussed resuming the Lamictal and monitoring his sodium as we do so to make sure Lamictal was not a factor in his sodium issue that led him to the ICU last week. We discussed the risks, benefits and alternatives including risk for York-Hung syndrome and he understood and agreed to proceed as is documented in this note. Mental Status Exam MSE Comments: This is a well nourished, well developed white man with hospital scrubs on with adequate grooming and eye contact. No abnormal movements appreciated today. He was cooperative with exam and in no acute distress. He was less intrusive. Speech was less pressured in regards to rate, normal rhythm, and normal volume today. Mood described as good. His affect remained grandiose but less intense. Thought process was circumstantial at times,but more linear. Thought content: patient denies suicidal or homicidal ideation. There was continued evidence of overvalued ideas and illusory correlations and grandiose thinking. He did not appear to be responding to internal stimuli. Attention and concentration are intact and memory appeared reliable in some areas but unreliable in others but none were formally tested. He is alert and oriented to person place and time. Insight and judgment are impaired. Impulse control is impaired. Vitals/I&O/Wt Last Vital Signs Temp 98.1 F 10/31/22 20:16 Pulse 114 H 10/31/22 20:16 Resp 17 10/31/22 20:16 BP 113/72 10/31/22 20:16 Pulse Ox 94 10/31/22 20:16 O2 Del Method 10/31/22 20:16 Weight last 48 hrs Weight 90.9 kg Data NPU 10/25/22 04:10 10/31/22 16:30 A&P Assessment and plan (1) Acute psychosis: (2) Severe manic bipolar 1 disorder with psychotic behavior: Plan This is a 47 year old white man with a history of trauma and genetic loading for mental health and addiction issues who presents with yazidism delusions, clear haley representing bipolar disorder versus schizoaffective disorder bipolar type reporting he came at the request of his due to her concerns and is open to medication changes at 1. Continue Depakote ER to 1250mg in am. Seroquel 400mg at night, continue Invega at 6mg as patient received 234mg of invega sustenna on 10/27/22. 156mg of invega sustenna ordered for 11/03/22. Start Lamictal 25 mg daily after checking sodium. 2. Encourage individual, group and milieu therapy 3. Continue q-15 minute check for safety 4. Recommend sober living treatment at the highest level of care to which the patient is willing to commit. 5. Patient on 21-day hold. Involuntary Hold Information 96 Hour Hold: 96 Hour Involuntary Admission: Yes 96 Hour Hold Ending Date: 10/20/22 96 Hour Hold Ending Time: 10:17 Attestations NPU Medical Necessity Statement*: Inpatient hospitalization is medically necessary and the clinically appropriate intervention at this time. We will monitor medications and make changes as indicated with likely length of stay is 7-10 days. 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
[2022-10-31] MEDS: lamoTRIgine 25 mg Tablet PO (16:36)
[2022-10-31 17:22] LABS: Alanine Aminotransferase 19 U/L (0-41); Albumin Level 4.2 g/dL (3.5-5.2); Alkaline Phosphatase 45 U/L (40-130); Anion Gap 12.5 (5-19); Aspartate Amino Transferase 18 U/L (0-40); Blood Urea Nitrogen 20 mg/dL (6-20); Calcium 9.8 mg/dL (8.5-10.5); Carbon Dioxide 30 mmol/L (22-29); Chloride 104 mmol/L (98-107); Globulin 2.5 g/dL (1.3-4.6); Glomerular Filtration Rate 59.7 mL/min (90-130); Glucose 100 mg/dL (65-115); Osmolality Calculated 297 mOsm/kg (285-295); Potassium 4.5 mmol/L (3.5-5.1); Sodium 142 mmol/L (136-145); Total Bilirubin 0.2 mg/dL (0.15-1.2); Total Protein 6.7 g/dL (6.6-8.7)
--- NOTE | 2022-10-31 17:39 | PC.NURSE ---
Dr. Brandon notified of pt's CMP results. No new orders.
[2022-10-31 20:16] VITALS: BP 113/72; PULSE 114; RESP 17; TEMP 36.7; O2SAT 94
[2022-10-31] MEDS: quetiapine 300 mg Tablet PO (20:17)
[2022-10-31] MEDS: quetiapine 100 mg Tablet PO (20:17)
[2022-11-01 06:00] VITALS: BP 132/86; PULSE 93; RESP 16; TEMP 36.6; O2SAT 96
[2022-11-01] MEDS: famotidine 20 mg Tablet PO (07:34)
[2022-11-01] MEDS: diazePAM 5 mg Tablet 2.5 MG PO (07:34)
[2022-11-01] MEDS: OLANZapine 5 mg ODT PO ×2 (07:34→14:17)
[2022-11-01] MEDS: ibuprofen 600 mg Tablet PO ×3 (07:34→20:16)
[2022-11-01] MEDS: lamoTRIgine 25 mg Tablet PO (07:35)
[2022-11-01] MEDS: paliperidone ER 6 mg Tablet PO (07:35)
[2022-11-01] MEDS: divalproex ER 500 mg Tablet (24H) 1250 MG PO (07:35)
--- NOTE | 2022-11-01 12:56 | W.PM.NPUPNS ---
Subjective NPU Subjective: Patient presents today mostly unchanged but being more open to the idea of Lamictal to a therapeutic dose. He endorsed being hopeful that this can happen sooner and being open to being more aggressive with the dosing. We once again discussed the risk for York-Hung syndrome and that we would be diligent in our approach to the dosing. We also need to check a couple sodiums as increased the dose just to identify whether or not Lamictal played a role in his diminishing sodium last week. Current sodium is in the normal range. Mental Status Exam MSE Comments: This is a well nourished, well developed white man with hospital scrubs on with adequate grooming and eye contact. No abnormal movements appreciated today. He was cooperative with exam and in no acute distress. He was less intrusive issues with personal space. Speech was less pressured in regards to rate, normal rhythm, and normal volume today. Mood described as good. His affect remained grandiose but less intense. Thought process was circumstantial at times,but more linear. Thought content: patient denies suicidal or homicidal ideation. There was continued evidence of overvalued ideas and illusory correlations and grandiose thinking. He did not appear to be responding to internal stimuli. Attention and concentration are intact and memory appeared reliable in some areas but unreliable in others but none were formally tested. He is alert and oriented to person place and time. Insight and judgment are impaired. Impulse control is impaired. Vitals/I&O/Wt Last Vital Signs Temp 97.9 F 11/01/22 06:00 Pulse 93 11/01/22 06:00 Resp 16 11/01/22 06:00 BP 132/86 11/01/22 06:00 Pulse Ox 96 11/01/22 06:00 O2 Del Method 11/01/22 06:00 Weight last 48 hrs Weight 90.9 kg Data NPU 10/25/22 04:10 10/31/22 16:30 A&P Assessment and plan (1) Acute psychosis: (2) Severe manic bipolar 1 disorder with psychotic behavior: Plan This is a 47 year old white man with a history of trauma and genetic loading for mental health and addiction issues who presents with buddhism delusions, clear haley representing bipolar disorder versus schizoaffective disorder bipolar type reporting he came at the request of his due to her concerns and is open to medication changes at 1. Continue Depakote ER to 1250mg in am. Seroquel 400mg at night, continue Invega at 6mg as patient received 234mg of invega sustenna on 10/27/22. 156mg of invega sustenna ordered for 11/03/22. Started Lamictal 25 mg daily after checking sodium. Increased to 50 mg in the morning. 2. Encourage individual, group and milieu therapy 3. Continue q-15 minute check for safety 4. Recommend sober living treatment at the highest level of care to which the patient is willing to commit. 5. Patient on 21-day hold. Involuntary Hold Information 96 Hour Hold: 96 Hour Involuntary Admission: Yes 96 Hour Hold Ending Date: 10/20/22 96 Hour Hold Ending Time: 10:17 Attestations NPU Medical Necessity Statement*: Inpatient hospitalization is medically necessary and the clinically appropriate intervention at this time. We will monitor medications and make changes as indicated with likely length of stay is 6-9 days. 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
[2022-11-01 14:00] VITALS: BP 124/84; PULSE 90; RESP 18; TEMP 36.7; O2SAT 97
--- NOTE | 2022-11-01 14:04 | PC.NURSE ---
Adding this note as an FYI due to the flight of ideas during our conversation. Mr. Lee never mentioned hurting himself or others. He spoke nearly the whole time and didn't let me answer or attempt to solve anything he was telling me about. He hung up when he was done without any type of good bye. 10/31/22 approximately 1100: Navy Material Inspector contacted me and asked to be put through to Mr. Lee in regards to several issues he was having. Mr. Lee spent approximately 20 minutes telling me the following: (Summarizing): 1. He has black and green mold in the AC unit in his room and he needs to be moved to the north side of the building. He can smell it and it is getting in his lungs. He has already spent several months in the hospital in [place] with mold exposure and respiratory failure. 2. He is going to ren the hospital for $20,000 a day if we don't get the mold problem fixed right now. He diesnt want to ren the hospital, he was actually born in hospital and would like to buy the night time nurses franc but if we didnt get him moved to the north side of the building this wasn't going to happen. 3. He personally knows Ej Sanders, account general manager of plant ops and we had better call him to come look at his AC unit. He and Art were in the together and combat and Art knows how to fix everything. 4. He needs to talk to his managing attorney and his because he needs to get discharged [place]. He cant get ahold of his managing attorney so thats why he called me. 5. He knows who owns the hospital and if I dont get him out of his room with the mold and call his managing attorney he will have me fired. 6. He discussed his grandmother who still visits him in the hospital, being born at [facility], getting all his healthcare at [facility] and our ER and needed to talk to the research and insights executive of the hospital about not returning to our facility if we dont get him out of his moldy room. He could see the mold climbing up the srivastava and around the window as we were talking. 7. He talked about being a , having PTSD about situations he couldn't discuss with me due to government secrets. 8. He repeatedly told me how smart he was and how he knew everything that was going on at all times.
[2022-11-01] MEDS: cetylpyridinium Lozenge 1 EACH MUCOUS MEM (14:17)
[2022-11-01] MEDS: nicotine 4 mg lozenge MUCOUS MEM (16:21)
[2022-11-01 20:00] VITALS: BP 128/78; PULSE 100; RESP 16; TEMP 36.6; O2SAT 99
[2022-11-01] MEDS: quetiapine 100 mg Tablet PO (20:15)
[2022-11-01] MEDS: quetiapine 300 mg Tablet PO (20:15)
[2022-11-02 06:00] VITALS: BP 116/80; PULSE 101; RESP 18; TEMP 36.6; O2SAT 98
[2022-11-02] MEDS: OLANZapine 5 mg ODT PO ×2 (06:00→14:07)
--- NOTE | 2022-11-02 07:26 | W.PM.NPUPNS ---
Subjective NPU Subjective: Patient presented today reporting that he is doing okay. He has accepted that he was going over [place] and that he needs to continue work on the Lamictal titration to have greater success. We discussed the fact that Dr. Harrison return tomorrow and continue working with him on progress goals discharge and titrating the Lamictal. Mental Status Exam MSE Comments: This is a well nourished, well developed white man with hospital scrubs on with adequate grooming and eye contact. No abnormal movements appreciated today. He was cooperative with exam and in no acute distress. He was less intrusive issues with personal space. Speech was less pressured in regards to rate, normal rhythm, and normal volume today. Mood described as good. His affect remained grandiose but less intense. Thought process was circumstantial at times,but more linear. Thought content: patient denies suicidal or homicidal ideation. There was continued evidence of overvalued ideas and illusory correlations and grandiose thinking. He did not appear to be responding to internal stimuli. Attention and concentration are intact and memory appeared reliable in some areas but unreliable in others but none were formally tested. He is alert and oriented to person place and time. Insight and judgment are impaired. Impulse control is impaired. Vitals/I&O/Wt Last Vital Signs Temp 97.9 F 11/02/22 06:00 Pulse 101 H 11/02/22 06:00 Resp 18 11/02/22 06:00 BP 116/80 11/02/22 06:00 Pulse Ox 98 11/02/22 06:00 O2 Del Method 11/01/22 06:00 Weight last 48 hrs Weight 90.9 kg Data NPU 10/25/22 04:10 10/31/22 16:30 A&P Assessment and plan (1) Bipolar 1 disorder, manic, mild: (2) Acute psychosis: (3) Severe manic bipolar 1 disorder with psychotic behavior: Plan This is a 47 year old white man with a history of trauma and genetic loading for mental health and addiction issues who presents with christianity delusions, clear haley representing bipolar disorder versus schizoaffective disorder bipolar type reporting he came at the request of his due to her concerns and is open to medication changes at 1. Continue Depakote ER to 1250mg in am. Seroquel 400mg at night, continue Invega at 6mg as patient received 234mg of invega sustenna on 10/27/22. 156mg of invega sustenna ordered for 11/03/22. Started Lamictal 25 mg daily after checking sodium. Increased to 50 mg in the morning. 2. Encourage individual, group and milieu therapy 3. Continue q-15 minute check for safety 4. Recommend sober living treatment at the highest level of care to which the patient is willing to commit. 5. Patient on 21-day hold. Involuntary Hold Information 96 Hour Hold: 96 Hour Involuntary Admission: Yes 96 Hour Hold Ending Date: 10/20/22 96 Hour Hold Ending Time: 10:17 Attestations NPU Medical Necessity Statement*: Inpatient hospitalization is medically necessary and the clinically appropriate intervention at this time. We will monitor medications and make changes as indicated with likely length of stay is 4-6 days. Coding Level of Care Code Acute Code for Chg Fwd Diagnoses Bipolar 1 disorder, manic, mild F31.11 Acute psychosis F23 Severe manic bipolar 1 disorder with psychotic behavior F31.2
[2022-11-02] MEDS: lamoTRIgine 25 mg Tablet 50 MG PO (09:29)
[2022-11-02] MEDS: divalproex ER 500 mg Tablet (24H) 1250 MG PO (09:30)
[2022-11-02] MEDS: paliperidone ER 6 mg Tablet PO (09:31)
[2022-11-02] MEDS: ibuprofen 600 mg Tablet PO ×3 (09:31→19:39)
[2022-11-02 14:00] VITALS: BP 119/74; PULSE 87; RESP 18; TEMP 36.4; O2SAT 98
[2022-11-02] MEDS: quetiapine 100 mg Tablet PO (19:38)
[2022-11-02] MEDS: quetiapine 300 mg Tablet PO (19:39)
[2022-11-02 19:42] VITALS: RESP 18
[2022-11-03 05:37] VITALS: BP 117/82; PULSE 105; RESP 18; TEMP 36.4; O2SAT 95
[2022-11-03] MEDS: ibuprofen 600 mg Tablet PO ×3 (08:11→19:53)
[2022-11-03] MEDS: divalproex ER 500 mg Tablet (24H) 1250 MG PO (08:11)
[2022-11-03] MEDS: lamoTRIgine 25 mg Tablet 50 MG PO (08:11)
[2022-11-03] MEDS: paliperidone ER 6 mg Tablet PO (08:12)
[2022-11-03 14:00] VITALS: BP 108/66; PULSE 97; RESP 18; TEMP 36.8; O2SAT 97
--- NOTE | 2022-11-03 14:36 | W.PM.NPUPNS ---
Subjective NPU Subjective: This is a 47-year-old white male with a history of bipolar type I disorder admitted with psychotic symptoms and haley along with a history of PTSD. Patient had reported that the hallucinations had been nonexistent. He had reported that his thoughts were slowing. He states that his visits with his were okay. He states that his energy has been adequate. He minimized any depressed mood. Staff notes the patient continued to appear somewhat religiously preoccupied and overly involved in other peers care. He had been redirectable though. The patient had continued to report that he was spiritual and stated that God would guide him regarding his medications. Mental Status Exam MSE Comments: This is a well nourished, well developed white man with hospital scrubs on with adequate grooming and eye contact. No abnormal movements appreciated today. He was cooperative with exam and in no acute distress. He was less intrusive issues with personal space. Speech was normal in regards to rate, normal rhythm, and normal volume today. Mood described as better. His affect remained grandiose but less intense. Thought process was circumstantial at times,but more linear. Thought content: patient denies suicidal or homicidal ideation. There was continued evidence of overvalued ideas and illusory correlations and grandiose thinking. He did not appear to be responding to internal stimuli. Attention and concentration are intact and memory appeared reliable in some areas but unreliable in others but none were formally tested. He is alert and oriented to person place and time. Insight and judgment remain poor. Impulse control is impaired. Vitals/I&O/Wt Last Vital Signs Temp 97.6 F 11/03/22 05:37 Pulse 105 H 11/03/22 05:37 Resp 18 11/03/22 05:37 BP 117/82 11/03/22 05:37 Pulse Ox 95 11/03/22 05:37 O2 Del Method 11/01/22 06:00 Data NPU 10/25/22 04:10 10/31/22 16:30 A&P Assessment and plan (1) Acute psychosis: (2) Severe manic bipolar 1 disorder with psychotic behavior: Plan This is a 47 year old white man with a history of trauma and genetic loading for mental health and addiction issues who presents with spiritism delusions, clear haley representing bipolar disorder versus schizoaffective disorder bipolar type reporting he came at the request of his due to her concerns and is open to medication changes at 1. Continue Depakote ER to 1250mg in am. Check depakote level in am. Seroquel 400mg at night, continue Invega at 3mg as patient received 156mg of invega im today. Continue Lamotrigine 50 mg in the morning. 2. Encourage individual, group and milieu therapy 3. Continue q-15 minute check for safety 4. Recommend sober living treatment at the highest level of care to which the patient is willing to commit. 5. Patient on 21-day hold. Involuntary Hold Information 96 Hour Hold: 96 Hour Involuntary Admission: Yes 96 Hour Hold Ending Date: 10/20/22 96 Hour Hold Ending Time: 10:17 Attestations NPU Medical Necessity Statement*: Inpatient hospitalization is medically necessary and the clinically appropriate intervention at this time. We will monitor medications and make changes as indicated with likely length of stay is 6-9 days. 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
[2022-11-03] MEDS: OLANZapine 5 mg ODT PO (16:37)
[2022-11-03] MEDS: paliperidone palmitate 156 mg Syringe IM (17:34)
[2022-11-03 19:45] VITALS: BP 114/75; PULSE 108; RESP 18; TEMP 36.5; O2SAT 95
[2022-11-03] MEDS: quetiapine 100 mg Tablet PO (19:52)
[2022-11-03] MEDS: quetiapine 300 mg Tablet PO (19:53)
[2022-11-04 06:00] VITALS: BP 109/67; PULSE 103; RESP 18; TEMP 36.3; O2SAT 95
[2022-11-04] MEDS: paliperidone ER 3 mg Tablet PO (08:40)
[2022-11-04] MEDS: ibuprofen 600 mg Tablet PO ×3 (08:41→19:53)
[2022-11-04] MEDS: divalproex ER 500 mg Tablet (24H) 1250 MG PO (08:41)
[2022-11-04] MEDS: lamoTRIgine 25 mg Tablet 50 MG PO (08:41)
[2022-11-04 14:00] VITALS: BP 120/77; PULSE 86; RESP 18; TEMP 36.8; O2SAT 98
--- NOTE | 2022-11-04 14:50 | P.NPUPN_ITS ---
Subjective NPU Subjective: This is a 47-year-old white male with a history of bipolar type I disorder admitted with psychotic symptoms and haley along with a history of PTSD. Patient reported that he felt better. He reported no side effects from his medication. He reported his thoughts were no longer racing. He had stated that he was inclined to continue his current hospital medications when he returned home. He reported some improved sleep. He continued to report feeling spiritually occupied but stated that he was feeling more confident about being able to maintain this regimen with the support of his . Mental Status Exam MSE Comments: This is a well nourished, well developed white man with hospital scrubs on with adequate grooming and eye contact. No abnormal movements appreciated today. He was cooperative with exam and in no acute distress. He was less intrusive issues with personal space. Speech was normal in regards to rate, normal rhythm, and normal volume today. Mood described as better. His affect was less intense today. Thought process was linear and logical. Thought content: patient denies suicidal or homicidal ideation. There was continued evidence of overvalued ideas with some grandiosity appreciated. He did not appear to be responding to internal stimuli. Attention and concentration are intact and memory appeared reliable in some areas but unreliable in others but none were formally tested. He is alert and oriented to person place and time. Insight and judgment remain poor. Impulse control appeared to be improving. Vitals/I&O/Wt Last Vital Signs Temp 97.3 F L 11/04/22 06:00 Pulse 103 H 11/04/22 06:00 Resp 18 11/04/22 06:00 BP 109/67 11/04/22 06:00 Pulse Ox 95 11/04/22 06:00 O2 Del Method 11/01/22 06:00 Data NPU 10/25/22 04:10 10/31/22 16:30 A&P Assessment and plan (1) Acute psychosis: (2) Severe manic bipolar 1 disorder with psychotic behavior: Plan This is a 47 year old white man with a history of trauma and genetic loading for mental health and addiction issues who presents with spiritism delusions, clear haley representing bipolar disorder versus schizoaffective disorder bipolar type reporting he came at the request of his due to her concerns and is open to medication changes at 1. Continue Depakote ER to 1250mg in am. Check depakote level in am, CBC with diff, and LFT Seroquel 400mg at night, continue Invega at 3mg as patient received 156mg of invega on 11/03/22. Reduced lamotrigine to 25 mg in the morning (patient is on depakote) 2. Encourage individual, group and milieu therapy 3. Continue q-15 minute check for safety 4. Recommend sober living treatment at the highest level of care to which the patient is willing to commit. 5. Patient on 21-day hold. Involuntary Hold Information 96 Hour Hold: 96 Hour Involuntary Admission: Yes 96 Hour Hold Ending Date: 10/20/22 96 Hour Hold Ending Time: 10:17 Attestations NPU Medical Necessity Statement*: Inpatient hospitalization is medically necessary and the clinically appropriate intervention at this time. We will monitor medications and make changes as indicated with likely length of stay is 4-6 days. 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
[2022-11-04] MEDS: quetiapine 100 mg Tablet PO (19:52)
[2022-11-04] MEDS: quetiapine 300 mg Tablet PO (19:52)
[2022-11-04 22:00] VITALS: BP 122/86; PULSE 98; RESP 17; TEMP 36.7; O2SAT 97
[2022-11-05 06:00] VITALS: BP 123/87; PULSE 109; RESP 18; TEMP 37; O2SAT 96
[2022-11-05 08:40] LABS: Basophils % 0.4 %; Eosinophils # 0.4 10^3/uL (0.0-0.8); Eosinophils % 5.2 %; Hematocrit 39.9 % (42.0-52.0); Hemoglobin 13.5 g/dL (11.7-16.6); Lymphocytes # 2.3 10^3/uL (0.8-4.8); Lymphocytes % 31.8 %; Mean Corpuscular HGB Conc 33.8 g/dL (30.0-36.0); Mean Corpuscular Hemoglobin 31.8 pg (28.0-34.0); Mean Corpuscular Volume 94.1 fl (80-94); Mean Platelet Volume 10.1 fL (7.4-10.4); Monocytes # 1.1 10^3/uL (0.2-0.9); Monocytes % 14.8 %; Neutrophils # 3.38 10^3/uL (1.8-7.7); Neutrophils % 46.7 %; Nucleated Red Blood Cells % 0 %; Platelet Count 238 10^3/cmm (130-400); Red Blood Count 4.24 10^6/uL (4.1-5.3); Red Cell Distribution Width 13.3 % (12.1-15.1); White Blood Count 7.2 10^3/uL (4.0-10.0)
[2022-11-05 09:06] LABS: Alanine Aminotransferase 30 U/L (0-41); Albumin Level 4.2 g/dL (3.5-5.2); Alkaline Phosphatase 49 U/L (40-130); Aspartate Amino Transferase 23 U/L (0-40); Globulin 2.7 g/dL (1.3-4.6); Total Bilirubin 0.2 mg/dL (0.15-1.2); Total Protein 6.9 g/dL (6.6-8.7); Valproic Acid Level 52.7 ug/mL (50-100)
[2022-11-05] MEDS: lamoTRIgine 25 mg Tablet PO (09:16)
[2022-11-05] MEDS: ibuprofen 600 mg Tablet PO ×3 (09:16→20:47)
[2022-11-05] MEDS: paliperidone ER 3 mg Tablet PO (09:16)
[2022-11-05] MEDS: divalproex ER 500 mg Tablet (24H) 1250 MG PO (09:16)
[2022-11-05 14:00] VITALS: RESP 18
--- NOTE | 2022-11-05 16:22 | P.NPUPN_ITS ---
Subjective NPU Subjective: This is a 47-year-old white male with a history of bipolar type I disorder admitted with psychotic symptoms and haley along with a history of PTSD. Depakote level was 52.7 today on 1250mg Depakote ER in am. Patient had reported improved mood. He reported no racing thoughts. He appeared to be more polite and less intrusive on the milieu. He had reported improved sleep. He had reported a good visit. Staff notes the patient had not required the use of any as needed medications. He denied any depressed mood. He reported no side effects from the Lamictal. In a Mental Status Exam MSE Comments: This is a well nourished, well developed white man with hospital scrubs on with adequate grooming and eye contact. No abnormal movements appreciated today. He was cooperative with exam and in no acute distress. He was less intrusive issues with personal space. Speech was normal in regards to rate, normal rhythm, and normal volume today. Mood described as good. His affect was flattening. Thought process was linear and logical. Thought content: patient denies suicidal or homicidal ideation. There was continued evidence of grandiosity and subtle paranoia noted. He did not appear to be responding to internal stimuli. Attention and concentration are intact and memory appeared reliable in some areas but unreliable in others but none were formally tested. He is alert and oriented to person place and time. Insight and judgment remain poor. Impulse control appeared to be improving. Vitals/I&O/Wt Last Vital Signs Temp 98.6 F 11/05/22 06:00 Pulse 109 H 11/05/22 06:00 Resp 18 11/05/22 14:00 BP 123/87 11/05/22 06:00 Pulse Ox 96 11/05/22 06:00 O2 Del Method 11/05/22 06:00 Data NPU 11/05/22 08:21 10/31/22 16:30 A&P Assessment and plan (1) Acute psychosis: (2) Severe manic bipolar 1 disorder with psychotic behavior: Plan This is a 47 year old white man with a history of trauma and genetic loading for mental health and addiction issues who presents with mandaeism delusions, clear haley representing bipolar disorder versus schizoaffective disorder bipolar type reporting he came at the request of his due to her concerns and is open to medication changes at 1. [place] [id number] in am. Check depakote level in am, CBC with diff, and LFT after 5 days. Seroquel 400mg at night, d/c oral invega; as patient received 156mg of invega on 11/03/22. Continue lamotrigine to 25 mg in the morning (patient is on depakote) 2. Encourage individual, group and milieu therapy 3. Continue q-15 minute check for safety 4. Recommend sober living treatment at the highest level of care to which the patient is willing to commit. 5. Patient on 21-day hold. Involuntary Hold Information 96 Hour Hold: 96 Hour Involuntary Admission: Yes 96 Hour Hold Ending Date: 10/20/22 96 Hour Hold Ending Time: 10:17 Attestations NPU Medical Necessity Statement*: Inpatient hospitalization is medically necessary and the clinically appropriate intervention at this time. We will monitor medications and make changes as indicated with likely length of stay is 4-6 days. 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
[2022-11-05] MEDS: OLANZapine 5 mg ODT PO (18:40)
[2022-11-05] MEDS: quetiapine 100 mg Tablet PO (20:48)
[2022-11-05] MEDS: quetiapine 300 mg Tablet PO (20:48)
[2022-11-05 22:00] VITALS: RESP 16
[2022-11-06 06:00] VITALS: BP 121/81; PULSE 92; RESP 18; TEMP 37; O2SAT 97
[2022-11-06] MEDS: ibuprofen 600 mg Tablet PO ×2 (08:38→16:23)
[2022-11-06] MEDS: divalproex ER 500 mg Tablet (24H) 1500 MG PO (08:39)
[2022-11-06] MEDS: lamoTRIgine 25 mg Tablet PO (08:39)
[2022-11-06 14:00] VITALS: BP 103/73; PULSE 73; RESP 16; TEMP 37.1; O2SAT 96
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
--- NOTE | 2022-11-06 16:26 | PC.NURSE ---
Pt has a small red tazlina on the top of his right foot, resembles ringworm.
[2022-11-06 16:45] VITALS: BP 103/73; PULSE 73; RESP 16; TEMP 37.1; O2SAT 96
== END 2022-11-06 17:20 | disposition home or self-care (01) | DRG 885 ==
LOC: ER 13:04 → NP 13:42 → ICU 10-23 22:30 → NP 10-25 11:08
PROVIDERS: Family Medicine; Internal Medicine; Admitting Provider Psychiatry & Neurology Psychiatry; Emergency Provider Family Medicine; PCP Family Medicine; Visit Provider Psychiatry & Neurology Psychiatry
DX: F31.2 Bipolar disorder, current episode manic severe with psychotic features (principal); E22.2 Syndrome of inappropriate secretion of antidiuretic hormone; F17.210 Nicotine dependence, cigarettes, uncomplicated; F43.10 Post-traumatic stress disorder, unspecified; Z81.8 Family history of other mental and behavioral disorders; F10.90 Alcohol use, unspecified, uncomplicated; F12.90 Cannabis use, unspecified, uncomplicated; T42.1X5A Adverse effect of iminostilbenes, initial encounter
CPT/HCPCS: 36415; 36416; 80048; 80053; 80076; 80164; 80306; 80307; 81001; 81003; 82436; 82570; 82962; 83036; 83930; 83935; 84133; 84295; 84300; 84443; 84478; 85025; 87426; 93005; 96372; 97150; 97165; 99285; J2405; Q0162; Q0163

== ENCOUNTER 2023-06-08 12:45 | Outpatient (CLI) | payer OTHER, SELFPAY ==
--- NOTE | 2023-06-08 12:57 | MR_ITS ---
WS: [id number] MRI LEFT SHOULDER NONCONTRAST TECHNIQUE: Sagittal T2, coronal T1, T2 and proton density imaging. Axial gradient PDE imaging. CLINICAL INFORMATION: L SHOULDER PAIN COMPARISON: None. FINDINGS: Mild degenerative arthritis AC joint with mild edema. Slight subacromial spurring. Slight impingement on the distal supraspinatus. Normal distal supraspinatus and infraspinatus. Normal subscapularis. No rmal teres minor. Biceps tendon appears intact within the bicipital groove. Normal biceps labral anch or. Glenoid labrum appears grossly normal. Normal bone marrow signal in the humeral head and glenoid. Normal intra-articular biceps tendon. MR/MR shoulder LT wo con* [id number] IMPRESSION: 1. Mild degenerative arthritis AC joint with mild edema and slight downsloping of the acromium with subacromial spurring. 2. Normal rotator cuff. 3. Normal biceps tendon in the bicipital groove. 4. Normal intra-articular biceps tendon. 5. Normal biceps labral anchor. 6. No other suspicious findings.
== END 2023-06-08 12:46 | disposition home or self-care (01) ==
PROVIDERS: PCP Family Medicine; Visit Provider Family Medicine
DX: M19.012 Primary osteoarthritis, left shoulder (principal)
CPT/HCPCS: 73221